=== PATIENT | female | born 1960 | race Caucasian/White ===

== ENCOUNTER 2020-02-15 03:49 | Emergency (ER) | payer BC, SELFPAY ==
--- NOTE | ~2020-02-15 | CT_ITS ---
EXAMINATION: CT abdomen pelvis wo con DATE: 02/15/2020 04:30 INDICATION: Right flank pain TECHNIQUE: Computed tomography (CT) of the abdomen and pelvis was performed without intravenous contr ast. Automated exposure control and iterative reconstruction technique were employed. The dose-length product was 849.59 mGy-cm. COMPARISON: 12/30/2014 FINDINGS: Mild discoid atelectasis in the bilateral lower lobes. No pleural effusion. Heart size is normal. Tin y pericardial effusion. Cholecystectomy clips at the gallbladder fossa. Liver, pancreas and bilateral adrenal glands are normal. Splenic calcification consistent with old granulomatous disease. 1 mm non obstructing stone at the upper pole of the left kidney. Right kidney is normal. No hydronephrosis in either kidney. No stones seen along the course of the ureters although the distalmost ureters and por tions of the bladder are obscured by dense metallic streak artifact from bilateral total hip arthropl asties. There are few scattered colonic diverticula along the descending and sigmoid colon without as sociated inflammatory stranding to suggest diverticulitis. Small bowel and appendix are normal. No fr ee intraperitoneal gas or fluid. No pathologically enlarged abdominal or pelvic lymphadenopathy. Tiny fat-containing umbilical hernia. Mild lumbar spondylosis. IMPRESSION: 1. 1 mm nonobstructing left renal stone. No ureteral stones or hydronephrosis although the distalmost ureters and portions of the bladder are obscured by streak artifact from bilateral hip arthroplastie s. 2. Mild diverticulosis. 3. Tiny pericardial effusion. Reviewed, dictated and finalized at location A. IMPRESSION: 1. 1 mm nonobstructing left renal stone. No ureteral stones or hydronephrosis a lthough the distalmost ureters and portions of the bladder are obscured by stre ak artifact from bilateral hip arthroplasties. 2. Mild diverticulosis. 3. Tiny pericardial effusion.
[2020-02-15 03:54] VITALS: BP 128/90; PULSE 73; RESP 16; TEMP 36.7; O2SAT 98
--- NOTE | 2020-02-15 04:10 | ED.GENADULT ---
HPI - General Adult General Chief complaint: Urogenital-Female Stated complaint: R flank pain Time Seen by Provider: 02/15/20 03:55 Source: RN notes reviewed History of Present Illness HPI narrative: Patient presents to emergency room from home for right flank pain. Patient states pain began this evening is progressively worsened. The pain is located in the right flank and radiates into the right groin. Described as sharp and stabbing. Denies any associated symptoms states she has had a previous history of a kidney stone feels similar before in the past. Denies any fevers or chills chest pain or shortness of breath is taken no previous pain medication at home Related Data Allergies Allergy/AdvReac Type Severity Reaction Status Date / Time methylene blue Allergy Unknown BLUE DYE Verified 02/15/20 04:16 CAUSES HIVES Sulfa (Sulfonamide Allergy Unknown Rash Verified 02/15/20 04:16 Antibiotics) Review of Systems Review of Systems: Narrative: Gen.: Denies fevers or chills ENT: Denies congestion Respiratory: Denies shortness of breath or cough CV: Denies chest pain or palpitations GI: D see HPI denies burning, urgency, frequency or hematuria Musculoskeletal: Denies back pain or muscle pain Neuro: Denies numbness, tingling, weakness or focal weakness Skin: Denies rash Except as documented, all other systems reviewed and negative [facility] Past Medical History Medical History (Updated 02/15/20 @ 06:30 by Jayant Lynn DO) Kidney stone Social History Social History (Updated 02/15/20 @ 04:11 by Jayant Lynn DO) Smoking status: Never smoker Alcohol intake: never Exam Narrative: Exam Narrative: APPEARANCE: No acute distress, nontoxic, resting in bed HEENT: Normocephalic, atraumatic, OMM RESPIRATORY: No respiratory distress, clear to auscultation bilaterally with no rhonchi wheezing or rales CARDIOVASCULAR: RRR s murmur ABDOMINAL: Soft nondistended, nontender palpation no rebound or guarding, right flank tenderness MUSCULOSKELETAl: Moves all extremities. No clubbing, cyanosis or edema. NEURO: Awake and alert. Following commands, speech normal, no focal deficits SKIN:: Warm, dry. Normal Color PSYCHIATRIC: Normal affect/mood Course Course Emergency Course: Patient states that they are feeling much better at this time. States abdominal pain has resolved. Repeat abdominal exam shows the patient's abdomen to be soft and nontender. Discussed with patient results of workup and diagnosis. Discussed need for follow-up with primary care physician, reasons to return to the emergency department in proper use of medication. Patient understands and agrees to current treatment plan Vital Signs Vital signs: Vital Signs Temperature 98.1 F 02/15/20 03:54 Pulse Rate 73 02/15/20 03:54 Respiratory Rate 16 02/15/20 03:54 Blood Pressure 128/90 02/15/20 03:54 Pulse Oximetry 98 02/15/20 03:54 Temperature 98.1 F 02/15/20 03:54 Pulse Rate 80 02/15/20 06:14 Respiratory Rate 16 02/15/20 06:14 Blood Pressure 100/68 02/15/20 06:14 Pulse Oximetry 96 02/15/20 06:14 Medical Decision Making Vital Signs Vital Signs: Vital Signs Temperature 98.1 F 02/15/20 03:54 Pulse Rate 73 02/15/20 03:54 Respiratory Rate 16 02/15/20 03:54 Blood Pressure 128/90 02/15/20 03:54 Pulse Oximetry 98 02/15/20 03:54 Temperature 98.1 F 02/15/20 03:54 Pulse Rate 80 02/15/20 06:14 Respiratory Rate 16 02/15/20 06:14 Blood Pressure 100/68 02/15/20 06:14 Pulse Oximetry 96 02/15/20 06:14 Lab Data Result diagrams: 02/15/20 04:13 02/15/20 04:13 Labs: Lab Results 02/15/20 02/15/20 02/15/20 Range/Units 04:13 04:13 04:14 WBC 9.3 (4.5-10.0) K/mm3 RBC 5.17 (4.2-5.4) M/mm3 Hgb 15.3 H (12.0-15.0) g/dL Hct 46.6 (37.0-47.0) % MCV 90.1 (80-100) fl MCH 29.6 (26-34) pg MCHC 32.8 (32-36) g/dl RDW 13.0 (11.5
[2020-02-15] MEDS: KETOROLAC 30 MG/ML VIAL (*BKC) IV PUSH (04:21)
[2020-02-15] MEDS: SODIUM CHLORIDE 0.9% IV 1,000 ML 999 ML IV CONT (04:22)
[2020-02-15 04:30] LABS: Basophils Absolute Auto 0.1 K/mm3 (0.0-0.1); Basophils Percent Auto 0.9 % (0.2-1.2); Eosinophils Absolute Auto 0.4 K/mm3 (0-0.3); Hematocrit 46.6 % (37.0-47.0); Hemoglobin 15.3 g/dL (12.0-15.0); Immature Granulocyte Absolute 0.04 K/mm3 (0.00-0.031); Immature Granulocyte Percent A 0.4 % (0-0.5); Lymphocytes Absolute Auto 1.91 K/mm3 (0.9-3.2); Lymphocytes Percent Auto 20.5 % (18.3-44.2); Mean Corpuscular HGB Conc 32.8 g/dl (32-36); Mean Corpuscular Hemoglobin 29.6 pg (26-34); Mean Corpuscular Volume 90.1 fl (80-100); Mean Platelet Volume 9.3 fl (7.4-10.4); Monocytes Absolute Auto 0.7 K/mm3 (0.1-0.6); Neutrophils Absolute Auto 6.3 K/mm3 (1.3-6.7); Neutrophils Percent Auto 67.2 % (45.5-73.1); Platelet Count Result 263 k/mm3 (150-375); Red Blood Count 5.17 M/mm3 (4.2-5.4); White Blood Count 9.3 K/mm3 (4.5-10.0)
[2020-02-15 04:37] LABS: Add Urine Microscopic? YES; Appearance Urine Cloudy (Clear); Bacteria Urine Trace /hpf; Bilirubin Urine Negative (Negative); Blood Urine Negative (Negative); Color Urine Yellow (Yellow); Glucose Urine UA 3+ mg/dL (Negative); Ketones Urine Negative (Negative); Leukocyte Esterase Ur 1+ LEU/UL (Negative); Mucus Urine Rare /lpf; Nitrate Urine Negative (Negative); Protein Urine Negative (Negative); Squamous Epithelial Cell Urine Many /hpf (Few); Urobilinogen Urine Negative mg/dL (<2.0); WBC Urine 21-30 /hpf
[2020-02-15 04:44] LABS: Alanine Aminotransferase 17 U/L (4-35); Albumin Level 4.6 g/dL (3.5-5.1); Alkaline Phosphatase 92 U/L (38-126); Anion Gap 7 mmol/L (8-16); Aspartate Amino Transferase 21 U/L (14-36); Bilirubin,Total 0.5 mg/dL (0.2-1.3); Blood Urea Nitrogen 10 mg/dL (7-17); Calcium 9.7 mg/dL (8.4-10.2); Carbon Dioxide 35 mmol/L (22-30); Chloride 103 mmol/L (98-107); Estimated CRCL calculation 85 ml/min; Estimated Glomerular Filt Rate > 60; Glucose 147 mg/dL (65-105); Potassium 3.4 mmol/L (3.4-5.0); Sodium 145 mmol/L (137-145)
[2020-02-15 04:51] LABS: Specific Grav Ur 1.031 (1.001-1.035)
[2020-02-15 06:14] VITALS: BP 100/68; PULSE 80; RESP 16; O2SAT 96
[2020-02-15] MEDS: NITROFURANTOIN MONOHYD MACROCR 100 MG CAP PO (06:38)
== END 2020-02-15 06:41 | disposition home or self-care (01) ==
PROVIDERS: Emergency Provider Emergency Medicine
DX: N39.0 Urinary tract infection, site not specified (principal); R10.9 Unspecified abdominal pain; Z87.442 Personal history of urinary calculi; K57.90 Diverticulosis of intestine, part unspecified, without perforation or abscess without bleeding
CPT/HCPCS: 36415; 74176; 80053; 81001; 85025; 87086; 96361; 96374; 99284; A9270; J1885; J7030

== ENCOUNTER → 2020-06-24 13:30 | Outpatient (CLI) | payer BC, SELFPAY ==
--- NOTE | ~2020-06-24 | XR_ITS ---
EXAMINATION: XR cervical spine min 6V EXAM DATE: 06/24/2020 14:15 INDICATION: Radiculopathy, cervical region. TECHNIQUE: Cervical spine frontal, lateral, lateral swimmers, and open-mouth odontoid projections. Additional lateral flexion and lateral extension projections obtained. Bilateral oblique projections. There are no prior studies for comparison. FINDINGS: There is moderate disc disease C5-6 and 6-7, mild at the other cervical levels. The verteb ral bodies are aligned in the AP dimension. The odontoid process is intact. The lateral masses of C1 line up with C2. Prevertebral soft tissue and pre-dens space are within normal limits. There are no acute fractures identified. Evidence of moderate bilateral C5-6 neural foraminal stenosis from uncove rtebral joint arthropathy. Probably mild to moderate bilateral neural foraminal stenosis at C6-7. Ove rall mild to moderate cervical arthropathy. Physiologic amount of motion on the flexion and extension projections. IMPRESSION: Moderate spondylosis C5-6, 6-7. Reviewed, dictated and finalized at location A. [employer]
== END ==
DX: M54.12 Radiculopathy, cervical region (principal); M99.01 Segmental and somatic dysfunction of cervical region; M99.02 Segmental and somatic dysfunction of thoracic region; M79.12 Myalgia of auxiliary muscles, head and neck; M54.14 Radiculopathy, thoracic region; M54.2 Cervicalgia; M47.812 Spondylosis without myelopathy or radiculopathy, cervical region
CPT/HCPCS: 72052

== ENCOUNTER → 2020-09-13 03:34 | Outpatient (CLI) | payer BC, SELFPAY ==
[2020-09-15 12:54] LABS: SARS-CoV-2 RNA PCR Negative
== END ==
PROVIDERS: Visit Provider Internal Medicine Gastroenterology
DX: Z01.812 Encounter for preprocedural laboratory examination (principal); Z20.822 Contact with and (suspected) exposure to COVID-19
CPT/HCPCS: C9803; U0003; U0005

== ENCOUNTER 2020-09-16 00:32 | Day surgery (SDC) | payer BC, SELFPAY ==
[2020-09-06 13:52] VITALS: BMI 32.0
[2020-09-16 09:50] VITALS: BP 155/84; PULSE 88; RESP 20; TEMP 36.2; O2SAT 95
[2020-09-16] MEDS: LACTATED RINGERS 1,000 ML 150 ML IV CONT (10:06)
[2020-09-16 10:11] LABS: Glucose Point of Care 189 mg/dl (65-105)
--- NOTE | 2020-09-16 10:35 | PM.HPGS ---
History of Present Illness History of Present Illness Consent: Risks, benefits, and alternatives have been discussed and questions answered. Patient agrees to proceed with procedure. Chief complaint: neoplasm screening Narrative: Kendra Ly is a 60 year old female referred for colon cancer screening Review of Systems Review of Systems: All systems reviewed & are unremarkable except as noted in HPI and below PMFSH Past Medical History Medical History Kidney stone Social History Social History Smoking packs per day: 0.5 Smoking cigarettes per day: 10.0 Years smoked: 16 Smoking pack-years: 8.00 Smoking status: Former smoker Tobacco type: cigarettes Alcohol intake: current Alcohol use details: rare use; 3-4 times per year Substance use: never Substance use type: does not use Living arrangements: with family Additional living arrangements comments: lives with spouse Feliciano Gender identity (if verbalized by the patient): Female Sexual Orientation (if Verbalized by the Patient): Straight or Heterosexual Spiritual care concerns: No Meds Home Medications and Allergies Home Medications Medication Instructions Recorded Confirmed Type Adult Allergy 1 tab-cap PO DAILY 09/06/20 09/06/20 History Centrum 1 tab-cap PO DAILY 09/06/20 09/06/20 History aspirin 81 mg PO DAILY 09/06/20 09/06/20 History calcium carbonate [Calcium 600] 600 mg PO DAILY 09/06/20 09/06/20 History empagliflozin-metformin [Synjardy 1 tablet PO QAM 09/06/20 09/06/20 History XR] gabapentin 1,200 mg PO 09/06/20 09/06/20 History magnesium oxide 400 mg PO DAILY 09/06/20 09/06/20 History pantoprazole 40 mg PO DAILY 09/06/20 09/06/20 History paroxetine HCl 30 mg PO QAM 09/06/20 09/06/20 History rosuvastatin 5 mg PO 09/06/20 09/06/20 History Allergies Allergy/AdvReac Type Severity Reaction Status Date / Time blue dye Allergy Unknown Hives Verified 09/16/20 09:48 methylene blue Allergy Unknown BLUE DYE Verified 09/16/20 09:48 CAUSES HIVES Sulfa (Sulfonamide Allergy Unknown Rash Verified 09/16/20 09:48 Antibiotics) Vital Signs Vital Signs - 24 hr 09/16/20 09:50 Temperature 36.2 C L Pulse Rate 88 Respiratory Rate 20 Blood Pressure 155/84 H Pulse Oximetry 95 Exam Resp: Auscultation: clear to auscultation bilaterally Cardio: Rate: regular rate Rhythm: regular rhythm GI: GI Palp: Yes Soft to palpation and No Tenderness to palpation present (GI) Assessment and Plan Assessment and plan (1) Colon cancer screening: Code(s): Z12.11 - Encounter for screening for malignant neoplasm of colon Status: Acute Assessment and Plan: Colonoscopy with possible biopsy or polypectomy or cautery or injection of substances.
--- NOTE | 2020-09-16 10:41 | WPDANESEPPF ---
Anes - Initial Pre Proc Eval Procedure: Operation Date: 09/16/20 10:30 Proposed Procedures p Screening Colonoscopy - Bean Castaneda MD Date/Time: 09/16/20 10:41 Surgeon: Bean Castaneda MD Pre Op Diagnosis: neoplasm screening Patient Data Age: 60 Gender: F Height: 5 ft 3 in Weight: 81.1 kg Last Vital Signs Temp 97.2 F L 09/16/20 09:50 Pulse 88 09/16/20 09:50 Resp 20 09/16/20 09:50 BP 155/84 H 09/16/20 09:50 Pulse Ox 95 09/16/20 09:50 Allergies Allergy/AdvReac Type Severity Reaction Status Date / Time blue dye Allergy Unknown Hives Verified 09/16/20 09:48 methylene blue Allergy Unknown BLUE DYE Verified 09/16/20 09:48 CAUSES HIVES Sulfa (Sulfonamide Allergy Unknown Rash Verified 09/16/20 09:48 Antibiotics) Home Medications Medication Instructions Recorded Confirmed Type Adult Allergy 1 tab-cap PO DAILY 09/06/20 09/06/20 History Centrum 1 tab-cap PO DAILY 09/06/20 09/06/20 History aspirin 81 mg PO DAILY 09/06/20 09/06/20 History calcium carbonate [Calcium 600] 600 mg PO DAILY 09/06/20 09/06/20 History empagliflozin-metformin [Synjardy 1 tablet PO QAM 09/06/20 09/06/20 History XR] gabapentin 1,200 mg PO HS 09/06/20 09/06/20 History magnesium oxide 400 mg PO DAILY 09/06/20 09/06/20 History pantoprazole 40 mg PO DAILY 09/06/20 09/06/20 History paroxetine HCl 30 mg PO QAM 09/06/20 09/06/20 History rosuvastatin 5 mg PO HS 09/06/20 09/06/20 History Laboratory Tests 09/16/20 10:05 POC Capillary Glucose 189 mg/dl H mg/dl (65-105) Patient hx anesthesia problems: none Family hx anesthesia problems: none PMFSH Past Medical History Medical History (Updated 09/16/20 @ 10:41 by Garth Dominguez MD) Depression Diabetes 1.5, managed as type 2 GERD (gastroesophageal reflux disease) Kidney stone ISABELLA (obstructive sleep apnea) Restless leg syndrome Social History Social History Smoking packs per day: 0.5 Smoking cigarettes per day: 10.0 Years smoked: 16 Smoking pack-years: 8.00 Smoking status: Former smoker Tobacco type: cigarettes Alcohol intake: current Alcohol use details: rare use; 3-4 times per year Substance use: never Substance use type: does not use Living arrangements: with family Additional living arrangements comments: lives with spouse Feliciano Gender identity (if verbalized by the patient): Female Sexual Orientation (if Verbalized by the Patient): Straight or Heterosexual Spiritual care concerns: No Anes - Eval Final PreProcedure Day of Procedure 09/16/20 10:41 Patient weight: overweight Heart: regular rate and rhythm Lungs: clear to auscultation Airway: Mallampati scale class II Neurological: alert and oriented Last oral intake: >/= 8 hours ASA classification: III Emergent: no Anesthetic plan: proceed Anesthesia type and monitoring: general GIVS and standard monitoring Informed Consent: The patient's anesthetic plan and its attendant risks and benefits were discussed with the patient/family/POA. Questions were solicited and answers provided to the satisfaction of the patient/family/POA.
[2020-09-16 11:12] VITALS: BP 117/69; PULSE 77; RESP 23; O2SAT 93
[2020-09-16 11:22] VITALS: BP 129/72; PULSE 82; RESP 17; O2SAT 97
[2020-09-16 11:32] VITALS: BP 129/77; PULSE 73; RESP 23; O2SAT 98
== END 2020-09-16 11:33 | disposition home or self-care (01) ==
PROVIDERS: Visit Provider Internal Medicine Gastroenterology
PROC: 0DJD8ZZ Inspection of Lower Intestinal Tract, Via Natural or Artificial Opening Endoscopic (ICD-10-PCS; CPT 45378; principal; 2020-09-16 10:30)
DX: Z12.11 Encounter for screening for malignant neoplasm of colon (principal); K57.30 Diverticulosis of large intestine without perforation or abscess without bleeding; Z87.442 Personal history of urinary calculi; Z87.891 Personal history of nicotine dependence
CPT/HCPCS: 45378; 82948; J2704; J7120

== ENCOUNTER 2021-10-17 05:53 | Emergency (ER) | payer OTHER, SELFPAY ==
[2021-10-17] VITALS (10 sets, daily range): BP systolic 110–153; BP diastolic 62–91; PULSE 92; RESP 17; TEMP 36.8; O2SAT 92–99
--- NOTE | ~2021-10-17 | CT_ITS ---
EXAMINATION: CT abdomen pelvis wo con DATE: 10/17/2021 06:34 INDICATION: Right flank pain TECHNIQUE: Computed tomography (CT) of the abdomen and pelvis was performed without intravenous contr ast. Automated exposure control and iterative reconstruction technique were employed. The dose-length product was 821.79 mGy-cm. COMPARISON: 02/15/2020 FINDINGS: Unchanged mild discoid atelectasis/scarring in the bilateral lower lobes. Heart size is normal. Ather osclerotic coronary artery calcification. Unchanged very small pericardial effusion. Diffuse hepatic steatosis. Cholecystectomy clips at the gallbladder fossa. Splenic calcifications consistent with old granulomatous disease. Pancreas and bilateral adrenal glands are normal. Unchanged 4 mm nonobstructi ng stone at the left kidney. Right kidney is normal. No hydronephrosis. No stones seen along the uret ers however portions of the distal ureters and bladder are obscured by dense metallic streak artifact from bilateral total hip arthroplasties. Unchanged pattern of phleboliths along the right gonadal ve in. There is mild colonic diverticulosis with a sigmoid predominance. There is no adjacent inflammat ory change to suggest diverticulitis. Small bowel and appendix are normal. The uterus is not identif ied and has likely been surgically resected. No free intraperitoneal gas or fluid. No pathologically enlarged abdominal or pelvic lymphadenopathy. Tiny fat-containing umbilical hernia. Mild lumbar spond ylosis. IMPRESSION: 1. Unchanged 1 mm nonobstructing left renal stone. No ureteral stones or hydronephrosis although the distalmost ureters and portions of the bladder are obscured by streak artifact from bilateral hip art hroplasties. 2. Mild diverticulosis. 3. Diffuse hepatic steatosis. 4. Unchanged tiny pericardial effusion. Reviewed, dictated and finalized at location A. IMPRESSION: 1. Unchanged 1 mm nonobstructing left renal stone. No ureteral stones or hydron ephrosis although the distalmost ureters and portions of the bladder are obscur ed by streak artifact from bilateral hip arthroplasties. 2. Mild diverticulosis. 3. Diffuse hepatic steatosis. 4. Unchanged tiny pericardial effusion.
--- NOTE | 2021-10-17 06:17 | ED.GENADULT ---
HPI - General Adult General Chief complaint: Abdominal Pain <Kilo Reed MD - Last Filed: 10/17/21 06:21> Stated complaint: right hip/side pain <Kilo Reed MD - Last Filed: 10/17/21 06:21> Time Seen by Provider: 10/17/21 06:17 <Kilo Reed MD - Last Filed: 10/17/21 06:21> History of Present Illness HPI narrative: Patient is a 61-year-old female that presents the emergency department with chief complaint of right flank pain. Patient reports that approximately 1 week ago she started having pain in the right flank area patient states spine of 8 out of 10 report is not improved by anything reports she had similar symptoms about 6 to 7 years ago whenever she had a kidney stone that she passed on her own patient states this time it actually is lasted for about a week and she is concerned that this may not be passing. Patient states that she has been urinating fairly frequently patient denies fever denies diarrhea. <Kilo Reed MD - Last Filed: 10/17/21 06:21> Related Data Home medications: Home Medications Medication Instructions Recorded Confirmed Adult Allergy 1 tab-cap PO DAILY 09/06/20 10/12/21 Centrum 1 tab-cap PO DAILY 09/06/20 10/12/21 aspirin 81 mg tablet 81 mg PO DAILY 09/06/20 10/12/21 calcium carbonate 600 mg calcium 600 mg PO DAILY 09/06/20 10/12/21 (1,500 mg) tablet (Calcium) empagliflozin 5 mg-metformin ER 1 tablet PO [facility] 09/06/20 10/12/21 1,000 mg tablet,extended release 24 hr (Synjardy XR) gabapentin 600 mg tablet 1,200 mg PO HS 09/06/20 10/12/21 magnesium oxide 400 mg PO DAILY 09/06/20 10/12/21 pantoprazole 40 mg tablet,delayed 40 mg PO DAILY 09/06/20 10/12/21 release paroxetine HCl 30 mg tablet 30 mg PO QAM 09/06/20 10/12/21 rosuvastatin 5 mg tablet 5 mg PO HS 09/06/20 10/12/21 alpha lipoic acid 600 mg capsule 600 mg PO BID 10/12/21 10/12/21 mecobalamin (vitamin B12) 5,000 mcg PO 10/12/21 10/12/21 mcg disintegrating tablet <Kilo Reed MD - Last Filed: 10/17/21 06:21> Allergies/adverse reactions: Allergies Allergy/AdvReac Type Severity Reaction Status Date / Time blue dye Allergy Unknown Hives Verified 10/17/21 06:06 methylene blue Allergy Unknown BLUE DYE Verified 10/17/21 06:06 CAUSES HIVES Sulfa (Sulfonamide Allergy Unknown Rash Verified 10/17/21 06:06 Antibiotics) <Kilo Reed MD - Last Filed: 10/17/21 06:21> Review of Systems Review of Systems: A 10 system review of systems was completed on the patient and is negative except for what is stated in the HPI. Nursing and ancillary documentation was reviewed. <Kilo Reed MD - Last Filed: 10/17/21 06:21> PMFSH Past Medical History Medical History: Medical History Depression Diabetes 1.5, managed as type 2 GERD (gastroesophageal reflux disease) Kidney stone ISABELLA (obstructive sleep apnea) Postprandial abdominal bloating Restless leg syndrome <Kilo Reed MD - Last Filed: 10/17/21 06:21> Social History Social History: Social History Smoking packs per day: 0.5 Smoking cigarettes per day: 10.0 Years smoked: 16 Smoking pack-years: 8.00 Smoking status: Former smoker Tobacco type: cigarettes Alcohol intake: current Alcohol use details: rare use; 3-4 times per year Substance use: never Substance use type: does not use Additional living arrangements comments: lives with spouse Feliciano Gender identity (if verbalized by the patient): Female Sexual Orientation (if Verbalized by the Patient): Straight or Heterosexual Spiritual care concerns: No <Kilo Reed MD - Last Filed: 10/17/21 06:21> Exam Narrative: GENERAL: Well-appearing, well-nourished, and in no acute distress. HEAD: Normocephalic, atraumatic. EYES: PERRL
--- NOTE | 2021-10-17 06:23 | PC.NURSE ---
Patient taken to CT via stretcher.
[2021-10-17 06:31] LABS: Basophils Absolute Auto 0.1 K/mm3 (0.0-0.1); Eosinophils Absolute Auto 1.1 K/mm3 (0-0.3); Eosinophils Percent Auto 11.3 % (0-4.4); Hemoglobin 15.1 g/dL (12.0-15.0); Immature Granulocyte Absolute 0.04 K/mm3 (0.00-0.031); Immature Granulocyte Percent A 0.4 % (0-0.5); Lymphocytes Absolute Auto 1.98 K/mm3 (0.9-3.2); Lymphocytes Percent Auto 21.2 % (18.3-44.2); Mean Corpuscular HGB Conc 32.8 g/dl (32-36); Mean Corpuscular Volume 91.3 fl (80-100); Mean Platelet Volume 9.1 fl (7.4-10.4); Monocytes Absolute Auto 0.6 K/mm3 (0.1-0.6); Monocytes Percent Auto 6.5 % (2.6-8.5); Neutrophils Absolute Auto 5.6 K/mm3 (1.3-6.7); Neutrophils Percent Auto 59.6 % (45.5-73.1); Platelet Count Result 248 k/mm3 (150-375); Red Blood Count 5.04 M/mm3 (4.2-5.4); Red Cell Distribution Width 13.2 % (11.5-14.5); White Blood Count 9.4 K/mm3 (4.5-10.0)
[2021-10-17] MEDS: SODIUM CHLORIDE 0.9% IV 1,000 ML 999 ML IV CONT (06:31)
[2021-10-17] MEDS: ONDANSETRON INJ 4 MG/2 ML VIAL IV PUSH (06:31)
[2021-10-17 06:42] LABS: Alanine Aminotransferase 23 U/L (6-35); Albumin Level 4.4 g/dL (3.5-5.1); Alkaline Phosphatase 109 U/L (38-126); Anion Gap 8 mmol/L (8-16); Aspartate Amino Transferase 26 U/L (14-36); Bilirubin,Total 0.4 mg/dL (0.2-1.3); Blood Urea Nitrogen 15 mg/dL (7-17); Calcium 9.4 mg/dL (8.4-10.2); Carbon Dioxide 28 mmol/L (22-30); Chloride 105 mmol/L (98-107); Estimated CRCL calculation 119 ml/min; Estimated Glomerular Filt Rate > 60; Glucose 233 mg/dL (65-110); Lactic Acid Reflex 2.6 mmol/L (0.7-2.0); Lipase 248 U/L (23-300); Magnesium 1.9 mg/dL (1.6-2.3); Sodium 141 mmol/L (137-145)
[2021-10-17 06:44] LABS: Add Urine Microscopic? YES; Appearance Urine Cloudy (Clear); Bilirubin Urine Negative (Negative); Blood Urine Trace-lysed (Negative); Color Urine Yellow (Yellow); Glucose Urine UA 3+ mg/dL (Negative); Ketones Urine Trace mg/dL (Negative); Leukocyte Esterase Ur 1+ LEU/UL (Negative); Nitrate Urine Negative (Negative); Protein Urine Negative (Negative); Urobilinogen Urine 0.2 mg/dL (<2.0); pH Urine 5.5 (5.0-9.0)
[2021-10-17 06:48] LABS: Budding Yeast Urine Present /hpf; Mucus Urine Rare /lpf; RBC Urine 51-75 /hpf (0-2); Squamous Epithelial Cell Urine Few /hpf (Few); WBC Urine >75 /hpf
--- NOTE | 2021-10-17 07:15 | PC.NURSE ---
Patient report received from LETICIA berry. All questions answered and care of patient assumed. Patient resting in stretcher with spouse at bedside and call-light within reach. Patient continue to c/o mild but tolerable pain. Continues to decline pain medication. Awaiting disposition.
[2021-10-17 09:27] LABS: Reflex Lactic Acid Yes or No Add Lactic
== END 2021-10-17 08:24 | disposition home or self-care (01) ==
PROVIDERS: Emergency Medicine; Emergency Provider Emergency Medicine
DX: N39.0 Urinary tract infection, site not specified (principal); E13.9 Other specified diabetes mellitus without complications; K21.9 Gastro-esophageal reflux disease without esophagitis; G47.33 Obstructive sleep apnea (adult) (pediatric); G25.81 Restless legs syndrome; F32.A Depression, unspecified; Z87.442 Personal history of urinary calculi; Z79.82 Long term (current) use of aspirin; Z79.84 Long term (current) use of oral hypoglycemic drugs; Z87.891 Personal history of nicotine dependence; N20.0 Calculus of kidney; K76.0 Fatty (change of) liver, not elsewhere classified; K57.90 Diverticulosis of intestine, part unspecified, without perforation or abscess without bleeding
CPT/HCPCS: 36415; 74176; 80053; 81001; 83605; 83690; 83735; 85025; 87086; 96361; 96374; 99284; J2405; J7030

== ENCOUNTER 2021-10-20 15:00 | Emergency (ER) | payer OTHER, SELFPAY ==
[2021-10-20 15:12] VITALS: BP 130/84; PULSE 93; RESP 14; TEMP 36.9; O2SAT 95
--- NOTE | 2021-10-20 15:58 | ED.FEMALEGU ---
HPI - Female Genitourinary General Chief complaint: Urogenital-Female Stated complaint: uti pain Time Seen by Provider: 10/20/21 15:21 Source: patient Mode of arrival: ambulatory History of Present Illness HPI Narrative: This is a 61-year-old female, who returns emergency department complaining of right-sided flank pain. She states she was here 3 days ago, and diagnosed with a UTI associated with a 1 mm stone. At the time of evaluation she did not have pain and politely declined pain medications. Today, she has noted several episodes of sharp, 8/10, right-sided flank pain with intermittent radiation to the left, aggravated by ambulation or prolonged standing; no known alleviating factors at this time.She has not tried any medications at home for this. She denies vomiting and has tolerated her antibiotics as previously prescribed. Related Data Home Medications Medication Instructions Recorded Confirmed Adult Allergy 1 tab-cap PO DAILY 09/06/20 10/17/21 Centrum 1 tab-cap PO DAILY 09/06/20 10/17/21 aspirin 81 mg tablet 81 mg PO DAILY 09/06/20 10/17/21 calcium carbonate 600 mg calcium 600 mg PO DAILY 09/06/20 10/17/21 (1,500 mg) tablet (Calcium) empagliflozin 5 mg-metformin ER 1 tablet PO QAM 09/06/20 10/17/21 1,000 mg tablet,extended release 24 hr (Synjardy XR) gabapentin 600 mg tablet 1,200 mg PO HS 09/06/20 10/17/21 magnesium oxide 400 mg PO DAILY 09/06/20 10/17/21 pantoprazole 40 mg tablet,delayed 40 mg PO DAILY 09/06/20 10/17/21 release paroxetine HCl 30 mg tablet (Paxil) 30 mg PO QAM 09/06/20 10/17/21 rosuvastatin 5 mg tablet 5 mg PO 09/06/20 10/17/21 alpha lipoic acid 600 mg capsule 600 mg PO BID 10/12/21 10/17/21 mecobalamin (vitamin B12) 5,000 1 mcg PO DAILY 10/12/21 10/17/21 mcg disintegrating tablet Allergies Allergy/AdvReac Type Severity Reaction Status Date / Time blue dye Allergy Unknown Hives Verified 10/17/21 12:58 methylene blue Allergy Unknown BLUE DYE Verified 10/17/21 12:58 CAUSES HIVES Sulfa (Sulfonamide Allergy Unknown Rash Verified 10/17/21 12:58 Antibiotics) Review of Systems Review of Systems: CONSTITUTIONAL: Denies fever, chills, or sweats. EYES: Denies visual changes, redness, or discharge. ENT: Denies rhinorrhea, congestion, sore throat, or otalgia. CARDIOVASCULAR: Denies chest pain, palpitations, or edema. RESPIRATORY: Denies cough or dyspnea. GASTROINTESTINAL: Sharp abdominal pain as described above, denies nausea, vomiting, or diarrhea. GENITOURINARY: Denies dysuria or hematuria. SKIN: Denies rash or itching. MUSCULOSKELETAL: Back pain as described above, denies joint pain, or myalgia. NEUROLOGIC: Denies headache, numbness, dizziness, or weakness. PSYCHIATRIC: Denies anxiety or depression. PMFSH Past Medical History Medical History Body mass index [BMI] 32.0-32.9, adult (12/30/18) Depression Diabetes 1.5, managed as type 2 DM w/o complication type II GERD (gastroesophageal reflux disease) Hyperlipidemia Kidney stone Nail deformity Neoplasm ISABELLA (obstructive sleep apnea) Postprandial abdominal bloating Restless leg syndrome Social History Social History Smoking packs per day: 0.5 Smoking cigarettes per day: 10.0 Years smoked: 16 Smoking pack-years: 8.00 Smoking status: Former smoker Tobacco type: cigarettes Alcohol intake: current Alcohol use details: rare use; 3-4 times per year Substance use: never Substance use type: does not use Additional living arrangements comments: lives with spouse Feliciano Gender identity (if verbalized by the patient): Female Sexual Orientation (if Verbalized by the Patient): Straight or Heterosexual Spiritual care concerns: No Exam Narrative: GENERAL: Well-appearing, well-nourished, and in no acute distress. HEAD: Normocephalic, atraumatic. EYES: PERRLA and EOMI. ENT: Nares clear, n
[2021-10-20 16:07] VITALS: BP 120/76; PULSE 78; RESP 18; O2SAT 98
[2021-10-20] MEDS: KETOROLAC 30 MG/ML VIAL (*BKC) 15 MG IM (16:11)
== END 2021-10-20 18:27 | disposition home or self-care (01) ==
PROVIDERS: Emergency Provider Preventive Medicine Aerospace Medicine
DX: N20.0 Calculus of kidney (principal); E78.5 Hyperlipidemia, unspecified; E13.9 Other specified diabetes mellitus without complications; K21.9 Gastro-esophageal reflux disease without esophagitis; G47.33 Obstructive sleep apnea (adult) (pediatric); G25.81 Restless legs syndrome; Z79.82 Long term (current) use of aspirin; Z87.442 Personal history of urinary calculi
CPT/HCPCS: 96372; 99283; J1885

== ENCOUNTER 2021-11-02 01:20 | Day surgery (SDC) | payer OTHER, SELFPAY ==
[2021-10-17 13:01] VITALS: BMI 31.9
--- NOTE | 2021-11-01 11:17 | PM.HPGS ---
History of Present Illness History of Present Illness Consent: Risks, benefits, and alternatives have been discussed and questions answered. Patient agrees to proceed with procedure. Chief complaint: bloating Narrative: Kendra Ly is a 61 year old female With complaints For the past 15-20 years, she has taken pantoprazole 40 mg daily for reflux but has never had an EGD.? she does report occasional breakthrough heartburn that she treats with [facility]. She denies any dysphagia or odynophagia. she complains off and on for the past couple years that has progressively gotten worse over this past year.? States bloating is worse after eating is better in the morning.? she cannot identify any particular foods that make her bloating worse.? she denies any vomiting.? 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 GERD (gastroesophageal reflux disease) Hyperlipidemia Kidney stone Nail deformity Neoplasm ISABELLA (obstructive sleep apnea) Postprandial abdominal bloating Restless leg syndrome Social History Social History Smoking packs per day: 0.5 Smoking cigarettes per day: 10.0 Years smoked: 16 Smoking pack-years: 8.00 Smoking status: Former smoker Tobacco type: cigarettes Alcohol intake: current Alcohol use details: rare use; 3-4 times per year Substance use: never Substance use type: does not use Additional living arrangements comments: lives with spouse Feliciano Gender identity (if verbalized by the patient): Female Sexual Orientation (if Verbalized by the Patient): Straight or Heterosexual Spiritual care concerns: No Meds Home Medications and Allergies Home Medications Medication Instructions Recorded Confirmed Type Adult Allergy 1 tab-cap PO DAILY 09/06/20 10/17/21 History Centrum 1 tab-cap PO DAILY 09/06/20 10/17/21 History aspirin 81 mg tablet 81 mg PO DAILY 09/06/20 10/17/21 History calcium carbonate 600 mg calcium 600 mg PO DAILY 09/06/20 10/17/21 History (1,500 mg) tablet (Calcium) empagliflozin 5 mg-metformin ER 1 tablet PO QAM 09/06/20 10/17/21 History 1,000 mg tablet,extended release 24 hr (Synjardy XR) gabapentin 600 mg tablet 1,200 mg PO HS 09/06/20 10/17/21 History magnesium oxide 400 mg PO DAILY 09/06/20 10/17/21 History pantoprazole 40 mg tablet,delayed 40 mg PO DAILY 09/06/20 10/17/21 History release paroxetine HCl 30 mg tablet (Paxil) 30 mg PO QAM 09/06/20 10/17/21 History rosuvastatin 5 mg tablet 5 mg PO HS 09/06/20 10/17/21 History alpha lipoic acid 600 mg capsule 600 mg PO BID 10/12/21 10/17/21 History mecobalamin (vitamin B12) 5,000 1 mcg PO DAILY 10/12/21 10/17/21 History mcg disintegrating tablet cephalexin 500 mg tablet 500 mg PO Q12H #14 tabs 10/17/21 10/17/21 Rx acetaminophen 500 mg tablet 500 mg PO .every 8 hours PRN pain 10/20/21 11/02/21 Rx (Acetaminophen Extra Strength) #60 tabs naproxen 500 mg tablet 500 mg PO BID #30 tabs 10/20/21 11/02/21 Rx tamsulosin 0.4 mg capsule 0.4 mg PO DAILY #14 caps 10/20/21 11/02/21 Rx Allergies Allergy/AdvReac Type Severity Reaction Status Date / Time blue dye Allergy Unknown Hives Verified 11/02/21 07:05 methylene blue Allergy Unknown BLUE DYE Verified 11/02/21 07:05 CAUSES HIVES Sulfa (Sulfonamide Allergy Unknown Rash Verified 11/02/21 07:05 Antibiotics) Exam Const: General: alert Orientation/consciousness: patient oriented x3 Resp: Auscultation: clear to auscultation bilaterally Cardio: Rhythm: regular rhythm GI: GI Palp: Yes Soft to palpation and No Tenderness to palpation present (GI) Neuro: General: patient oriented x3 Assessment a
--- NOTE | 2021-11-01 15:52 | WPDANESEPPF ---
Anes - Initial Pre Proc Eval Procedure: Operation Date: 11/02/21 08:30 Proposed Procedures p Esophagogastroduodenoscopy - Bean Castaneda MD Date/Time: 11/01/21 15:52 Surgeon: Bean Castaneda MD Pre Op Diagnosis: bloating Patient Data Age: 61 Gender: F Height: 1.6 m Weight: 81.8 kg Allergies Allergy/AdvReac Type Severity Reaction Status Date / Time blue dye Allergy Unknown Hives Verified 11/02/21 07:05 methylene blue Allergy Unknown BLUE DYE Verified 11/02/21 07:05 CAUSES HIVES Sulfa (Sulfonamide Allergy Unknown Rash Verified 11/02/21 07:05 Antibiotics) Home Medications Medication Instructions Recorded Confirmed Type Adult Allergy 1 tab-cap PO DAILY 09/06/20 10/17/21 History Centrum 1 tab-cap PO DAILY 09/06/20 10/17/21 History aspirin 81 mg tablet 81 mg PO DAILY 09/06/20 10/17/21 History calcium carbonate 600 mg calcium 600 mg PO DAILY 09/06/20 10/17/21 History (1,500 mg) tablet (Calcium) empagliflozin 5 mg-metformin ER 1 tablet PO QAM 09/06/20 10/17/21 History 1,000 mg tablet,extended release 24 hr (Synjardy XR) gabapentin 600 mg tablet 1,200 mg PO HS 09/06/20 10/17/21 History magnesium oxide 400 mg PO DAILY 09/06/20 10/17/21 History pantoprazole 40 mg tablet,delayed 40 mg PO DAILY 09/06/20 10/17/21 History release paroxetine HCl 30 mg tablet (Paxil) 30 mg PO QAM 09/06/20 10/17/21 History rosuvastatin 5 mg tablet 5 mg PO HS 09/06/20 10/17/21 History alpha lipoic acid 600 mg capsule 600 mg PO BID 10/12/21 10/17/21 History mecobalamin (vitamin B12) 5,000 1 mcg PO DAILY 10/12/21 10/17/21 History mcg disintegrating tablet cephalexin 500 mg tablet 500 mg PO Q12H #14 tabs 10/17/21 10/17/21 Rx acetaminophen 500 mg tablet 500 mg PO .every 8 hours PRN pain 10/20/21 11/02/21 Rx (Acetaminophen Extra Strength) #60 tabs naproxen 500 mg tablet 500 mg PO BID #30 tabs 10/20/21 11/02/21 Rx tamsulosin 0.4 mg capsule 0.4 mg PO DAILY #14 caps 10/20/21 11/02/21 Rx Patient hx anesthesia problems: none Family hx anesthesia problems: none Results Review: All pre-operative results and documents have been reviewed as part of the pre-operative evaluation. 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 type II GERD (gastroesophageal reflux disease) Hyperlipidemia Kidney stone Nail deformity Neoplasm ISABELLA (obstructive sleep apnea) Postprandial abdominal bloating Restless leg syndrome Social History Social History Smoking packs per day: 0.5 Smoking cigarettes per day: 10.0 Years smoked: 16 Smoking pack-years: 8.00 Smoking status: Former smoker Tobacco type: cigarettes Alcohol intake: current Alcohol use details: rare use; 3-4 times per year Substance use: never Substance use type: does not use Additional living arrangements comments: lives with spouse Feliciano Gender identity (if verbalized by the patient): Female Sexual Orientation (if Verbalized by the Patient): Straight or Heterosexual Spiritual care concerns: No Anes - Eval Final PreProcedure Day of Procedure 11/01/21 15:52 Patient weight: overweight Heart: regular rate and rhythm Lungs: clear to auscultation Airway: Mallampati scale class II Neurological: alert and oriented Last oral intake: >/= 8 hours ASA classification: III Emergent: no Anesthetic plan: proceed Anesthesia type and monitoring: general GIVS and standard monitoring Results Review: All pre-operative results and documents have been reviewed as part of the pre-operative evaluation. Informed Consent: The patient's anesthetic plan and its attendant risks and benefits were discussed with the patient/family/POA. Questions were solicited and answers provided to the satisfaction of the patient/family/POA.
[2021-11-02 07:06] VITALS: BP 146/87; PULSE 85; RESP 18; TEMP 36.2; O2SAT 97; BMI 31.8
[2021-11-02] MEDS: LACTATED RINGERS 1,000 ML 150 ML IV CONT (07:24)
[2021-11-02 07:27] LABS: Glucose Point of Care 187 mg/dl (65-105)
[2021-11-02 08:21] VITALS: BP 89/41; PULSE 84; RESP 17; O2SAT 97
[2021-11-02 08:31] VITALS: BP 123/66; PULSE 83; RESP 19; O2SAT 99
[2021-11-02 08:41] VITALS: BP 125/70; PULSE 84; RESP 24; O2SAT 99
== END 2021-11-02 08:56 | disposition home or self-care (01) ==
PROVIDERS: Visit Provider Internal Medicine Gastroenterology
PROC: 0DJ08ZZ Inspection of Upper Intestinal Tract, Via Natural or Artificial Opening Endoscopic (ICD-10-PCS; CPT 43235; principal; 2021-11-02 08:30)
DX: K21.9 Gastro-esophageal reflux disease without esophagitis (principal); K29.70 Gastritis, unspecified, without bleeding; E13.9 Other specified diabetes mellitus without complications; E78.5 Hyperlipidemia, unspecified; G47.33 Obstructive sleep apnea (adult) (pediatric); G25.81 Restless legs syndrome; F32.A Depression, unspecified; Z79.84 Long term (current) use of oral hypoglycemic drugs; Z87.891 Personal history of nicotine dependence
CPT/HCPCS: 43239; 82948; 88305; J2001; J2704; J7120

== ENCOUNTER 2022-01-10 11:59 | Outpatient (CLI) | payer OTHER, SELFPAY ==
--- NOTE | ~2022-01-10 | XR_ITS ---
XR abdomen/kub 1V 01/10/2022 12:23 Indication: Gastroesophageal reflux. Procedure: KUB Comparison: 12/24/2012 Findings: Bowel gas pattern is nonobstructive. There are cholecystectomy clips. There is bilateral to alecia hip arthroplasties. No acute osseous abnormality. Impression: 1: No acute abdominal abnormality. Reviewed, dictated and finalized at location A. Impression: 1: No acute abdominal abnormality.
== END 2022-01-10 12:00 | disposition home or self-care (01) ==
PROVIDERS: Visit Provider Nurse Practitioner Family
DX: K21.9 Gastro-esophageal reflux disease without esophagitis (principal)
CPT/HCPCS: 74018

== ENCOUNTER 2022-04-04 14:00 | Emergency (ER) | payer OTHER, SELFPAY ==
--- NOTE | ~2022-04-04 | CT_ITS ---
EXAMINATION: CT abdomen pelvis wo con DATE: 04/04/2022 16:07 INDICATION: hematuria. hsx of stone TECHNIQUE: Computed tomography (CT) of the abdomen and pelvis was performed intravenous contrast. Automated exposure control and iterative reconstruction technique were employe d. The dose-length product was 359.65 mGy-cm. COMPARISON: None. FINDINGS: Lower thorax: Lower lung scarring. Unchanged minimal pericardial thickening/fluid. Liver: Normal. Biliary/Gallbladder: Gallbladder is absent. No bile duct dilation. Pancreas: No mass or duct dilation. Spleen: Normal. Adrenals:No mass. Kidneys: No mass, stone, or hydronephrosis. Density at the tips of the renal pyramids. GI tract: No small or large bowel dilation. Normal appendix. Diverticulosis without diverticulitis. Mesentery/Peritoneum: No ascites, mass, or free air. Retroperitoneum: No mass. Atherosclerotic abdominal aortic and/or arterial calcifications. Pelvis: Considerable artifact obscures the majority of the pelvic organs. Soft Tissues: Small uncomplicated fat-containing umbilical hernia Bones: No acute osseous finding. Bilateral incompletely visualized but uncomplicated appearing hip a rthroplasties IMPRESSION: No acute abdominopelvic process detected. The distal ureters and UVJs are obscured by hardware relate d artifact, however there is no evidence of obstructive uropathy proximally. Chronic and incidental f indings detailed above. Reviewed, dictated and finalized at location K. WORKER IMPRESSION: No acute abdominopelvic process detected. The distal ureters and UVJs are obscu red by hardware related artifact, however there is no evidence of obstructive u ropathy proximally. Chronic and incidental findings detailed above.
[2022-04-04 14:15] VITALS: BP 147/76; PULSE 99; RESP 18; TEMP 36.7; O2SAT 99
[2022-04-04 15:20] LABS: Appearance Urine Slightly Cloudy (Clear); Bilirubin Urine Negative (Negative); Blood Urine 2+ (Negative); Color Urine Orange (Yellow); Glucose Urine UA 3+ mg/dL (Negative); Ketones Urine Negative (Negative); Nitrate Urine Positive (Negative); Protein Urine 2+ mg/dL (Negative)
[2022-04-04 15:21] LABS: Add Urine Microscopic? YES; Leukocyte Esterase Ur 1+ LEU/UL (Negative)
[2022-04-04 15:27] LABS: Bacteria Urine Trace /hpf; Budding Yeast Urine Present /hpf; RBC Urine 51-75 /hpf (0-2); Squamous Epithelial Cell Urine Many /hpf (Few); WBC Clumps Urine Present /HPF; WBC Urine >75 /hpf
--- NOTE | 2022-04-04 16:03 | ED.GENADULT ---
HPI - General Adult General Chief complaint: Urogenital-Female Stated complaint: urinary incontinence with vaginal pain since Liane Time Seen by Provider: 04/04/22 14:45 History of Present Illness HPI narrative: 61-year-old female with recurrent UTIs presented to the emergency department for evaluation hematuria bladder spasms and vaginal wall spasms. Patient states this has been ongoing for multiple months. Patient does have follow-up with urology. Patient has also had follow-up with [facility]. Patient states she completed her last course of antibiotics a few months ago. Patient states she began having worsening symptoms over the last few days. Patient is currently being worked up by urology and [facility] for possible vaginal vesicular fistula Related Data Home Medications Medication Instructions Recorded Confirmed Adult Allergy 1 tab-cap PO DAILY 09/06/20 03/27/22 Centrum 1 tab-cap PO DAILY 09/06/20 03/27/22 aspirin 81 mg tablet 81 mg PO DAILY 09/06/20 03/27/22 empagliflozin 5 mg-metformin ER 1 tablet PO QAM 09/06/20 03/27/22 1,000 mg tablet,extended release 24 hr (Synjardy XR) gabapentin 600 mg tablet 1,200 mg PO HS 09/06/20 03/27/22 pantoprazole 40 mg tablet,delayed 40 mg PO DAILY 09/06/20 03/27/22 release paroxetine HCl 30 mg tablet (Paxil) 30 mg PO QAM 09/06/20 03/27/22 rosuvastatin 5 mg tablet 5 mg PO HS 09/06/20 03/27/22 alpha lipoic acid 600 mg capsule 600 mg PO BID 10/12/21 03/27/22 Allergies Allergy/AdvReac Type Severity Reaction Status Date / Time blue dye Allergy Unknown Hives Verified 03/27/22 10:14 methylene blue Allergy Unknown BLUE DYE Verified 03/27/22 10:14 CAUSES HIVES Sulfa (Sulfonamide Allergy Unknown Rash Verified 03/27/22 10:14 Antibiotics) Review of Systems Review of Systems: CONSTITUTIONAL: Denies fever, chills, or sweats. EYES: Denies visual changes, redness, or discharge. ENT: Denies rhinorrhea, congestion, sore throat, or otalgia. CARDIOVASCULAR: Denies chest pain, palpitations, or edema. RESPIRATORY: Denies cough or dyspnea. GASTROINTESTINAL: Denies abdominal pain, nausea, vomiting, or diarrhea. GENITOURINARY: Hematuria, vaginal and bladder spasms SKIN: Denies rash or itching. MUSCULOSKELETAL: Denies back pain, joint pain, or myalgia. NEUROLOGIC: Denies headache, numbness, or weakness. 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 II GERD (gastroesophageal reflux disease) Hyperlipidemia IBS (irritable bowel syndrome) Kidney stone Nail deformity Neoplasm ISABELLA (obstructive sleep apnea) Postprandial abdominal bloating Restless leg syndrome Surgical History Surgical History History of ankle surgery (~2011) left ankle tendonitis surgery History of bladder suspension procedure (~09/22/03) TVT History of cholecystectomy (~07/22/08) History of hip replacement (~10/13/18) left hip replacement History of sinus surgery (~02/21/19) History of tonsillectomy (~07/22/80) History of total right hip replacement (~09/09/09) History of total vaginal hysterectomy (TVH) (~09/21/01) menometrorrhagia Family History Family History Father Hypertension Heart disease Grandparent Hypertension maternal grandmother Diabetes mellitus maternal grandmother Cerebrovascular accident maternal grandmother Social History Social History Smoking packs per day: 0.5 Smoking cigarettes per day: 10.0 Years smoked: 16 Smoking pack-years: 8.00 Smoking status: Former smoker Tobacco type: cigarettes Alcohol intake: former Alcohol use details: rare use; 3-4 times per year Substance use: never Subst
[2022-04-04] MEDS: levoFLOXacin 750 MG TABLET PO (16:32)
[2022-04-04] MEDS: HYDROcodone/acetaminophen (*CRX) 5-325 MG TABLET 1 TAB PO (16:37)
== END 2022-04-04 17:30 | disposition home or self-care (01) ==
PROVIDERS: Emergency Medicine; Emergency Provider Emergency Medicine
DX: N39.0 Urinary tract infection, site not specified (principal); F41.9 Anxiety disorder, unspecified; F32.9 Major depressive disorder, single episode, unspecified; E11.9 Type 2 diabetes mellitus without complications; K21.9 Gastro-esophageal reflux disease without esophagitis; E78.5 Hyperlipidemia, unspecified; G47.30 Sleep apnea, unspecified
CPT/HCPCS: 74176; 81001; 87086; 99284; A9270

== ENCOUNTER 2022-04-05 07:36 | Outpatient (CLI) | payer OTHER, SELFPAY ==
--- NOTE | ~2022-04-05 | NM_ITS ---
EXAM: NM gastric emptying study DATE: 04/05/2022 12:19 INDICATION: Postprandial bloating and gas. TECHNIQUE: A gastric emptying study was performed using the methodology of Humaira COLE, et al. J Nucl Med 2007; 48:568-572. The patient was given a meal consisting of 2 scrambled eggs labeled with 1.01 mCi Tc-99m sulfur colloid, 2 slices of toast, two packages of jam, and approximately 120 mL of water. Simultaneous anterior and posterior 1-min images of the abdomen were obtained with the patient supin e at multiple time points over a total period of 4 hours. The geometric mean of anterior and posterio r views was determined, and the percentage retention was calculated for each time point. COMPARISON: CT abdomen and pelvis 04/04/2022 FINDINGS: Gastric retention of the radiotracer-labeled meal was 76%, 43%, and 20% at the 1-hour, 2-h our, and 4-hour time points, respectively. With this technique, apparent rapid gastric emptying is cruz ggested by <30% gastric retention at 1 hour. Delayed gastric emptying is defined by gastric retention of >90% at 1 hour, >60% retention at 2 hours, or >10% retention at 4 hours. IMPRESSION: 1. Delayed gastric emptying. Reviewed, dictated and finalized at location A. [employer]IST
== END 2022-04-05 07:37 | disposition home or self-care (01) ==
PROVIDERS: Visit Provider Nurse Practitioner Family
DX: R14.0 Abdominal distension (gaseous) (principal); K30 Functional dyspepsia
CPT/HCPCS: 78264; A9541

== ENCOUNTER 2022-05-02 09:08 | Outpatient (CLI) | payer OTHER, SELFPAY ==
--- NOTE | ~2022-05-02 | XR_ITS ---
EXAMINATION: XR abdomen/kub 1V INDICATION: Microscopic hematuria TECHNIQUE: Supine views of the abdomen were obtained on 2 radiographs. COMPARISON: 01/10/2022 FINDINGS: No urolithiasis is identified. The bowel gas pattern is normal. Cholecystectomy clips are n oted. The visualized lung bases are clear. There are changes of bilateral hip arthroplasty. IMPRESSION: 1. No urolithiasis identified. Reviewed, dictated and finalized at location L. LINE COOK
== END 2022-05-02 09:09 | disposition home or self-care (01) ==
LOC: ANHIMG 09:16
PROVIDERS: Visit Provider Nurse Practitioner Family
DX: R31.29 Other microscopic hematuria (principal)
CPT/HCPCS: 74018

== ENCOUNTER 2022-12-27 09:47 | Outpatient (CLI) | payer OTHER, SELFPAY ==
[2022-12-27 10:30] LABS: Anion Gap 8 mmol/L (8-16); Blood Urea Nitrogen 11 mg/dL (7-17); Calcium 9.6 mg/dL (8.4-10.2); Carbon Dioxide 32 mmol/L (22-30); Chloride 102 mmol/L (98-107); Estimated Glomerular Filt Rate > 60; Glucose 144 mg/dL (65-110); Potassium 4.4 mmol/L (3.4-5.0); Sodium 142 mmol/L (137-145)
== END 2022-12-27 09:48 | disposition home or self-care (01) ==
PROVIDERS: Anesthesiology; Visit Provider Urology
DX: Z01.818 Encounter for other preprocedural examination (principal); E11.9 Type 2 diabetes mellitus without complications
CPT/HCPCS: 36415; 80048

== ENCOUNTER 2022-12-29 00:57 | Day surgery (SDC) | payer OTHER, SELFPAY ==
[2022-12-26 14:58] VITALS: BMI 29.2
--- NOTE | 2022-12-26 15:14 | PC.NURSE ---
Report to the Outpatient Waiting Room, entrance under the green pavilion located off [facility], at time 07:00am on date 12-29-22. Planned Procedure Time: 09:00am. Time changes happen often and if your time is changed the preop area will call you the afternoon before. - You and your visitor will be asked to self-screen and do not enter if you have any COVID symptoms. - A mask is optional within the hospital at this time. Patients may have clear liquids (water, carbonated beverages, clear teas, apple juice) until 3 hours prior to surgery (06:00am) with a maximum of 20 ounces. - No food from midnight until time of surgery Take the following medications with a SIP of water the morning of surgery: BUPRPION, PAXIL DO NOT STOP ANY OF YOUR OTHER PRESCRIPTION MEDICATIONS PRIOR TO SURGERY ?EXCEPT THE FOLLOWING Medications to discontinue per physician: VITMAINS AND ASPIRIN STOPPED 8-28 PER [facility] AND PATIENT Please no make-up, nail yi, hairspray, perfume, deodorant, or body powder the day of surgery. No jewelry (including any body piercings) or valuables the day of surgery, leave them at home. Please take a shower or bath the night before, or the morning of, surgery with an antibacterial soap. Wear comfortable, loose fitting clothing. - Jewelry must be removed prior to entering the operating room. Rings and piercings that are not removed may be cut off. - The hospital will not accept responsibility for valuables. - Please leave all valuables, including medications, at home the day of surgery. If you are going home after surgery, a licensed team cdl driver must drive you home. - NO public transportation without another adult if you receive anesthesia. - We recommend that an adult stay with you for 24 hours following discharge. - We also recommend that you do not drive, make important decision, drink alcoholic beverages, or take any drugs that were not prescribed by your health care provider for at least 24 hours after your discharge time. Follow any additional instructions given to you from your surgeon. If you or anyone in your household have experienced Covid symptoms in the past week, please notify your surgeon or the nurse liaison at the phone number below for possible testing. Telephone instructions given to PATIENT and asked if any additional questions and then verbalized understanding. Patient advised to call surgeon office or pre surgery nurse liaison [phone] if any additional questions.
--- NOTE | 2022-12-27 21:56 | PM.IMHP ---
H&P: HPI History of Present Illness Date/Time: 12/27/22 21:56 Chief Complaint: urge incontinence Narrative: she has refractory urge incontinence. She is failed at least 2 medications well as behavioral techniques and Kegel exercises. She underwent a trial of sacral neuromodulation. She had greater than 50% improvement. 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 type II Gastroparesis GERD (gastroesophageal reflux disease) Hyperlipidemia IBS (irritable bowel syndrome) Kidney stone Nail deformity Neoplasm ISABELLA (obstructive sleep apnea) Postprandial abdominal bloating Restless leg syndrome Surgical History Surgical History History of ankle surgery (~2011) left ankle tendonitis surgery History of bladder suspension procedure (~09/22/03) TVT History of cholecystectomy (~07/22/08) History of hip replacement (~10/13/18) left hip replacement History of sinus surgery (~02/21/19) History of tonsillectomy (~07/22/80) History of total right hip replacement (~09/09/09) History of total vaginal hysterectomy (TVH) (~09/21/01) menometrorrhagia Family History Family History Father Hypertension Heart disease Grandparent Hypertension maternal grandmother Diabetes mellitus maternal grandmother Cerebrovascular accident maternal grandmother Social History Social History Smoking packs per day: 0.5 Smoking cigarettes per day: 10.0 Years smoked: 16 Smoking pack-years: 8.00 Smoking status: Former smoker Tobacco type: cigarettes Second hand tobacco smoke exposure: No Smoking end date: 06/07/91 Alcohol intake: never Alcohol use details: rare use; 3-4 times per year Substance use: never Substance use type: does not use Living arrangements: with family Additional living arrangements comments: lives with spouse Feliciano Occupation/Education: retired Gender identity (if verbalized by the patient): Female Sexual Orientation (if Verbalized by the Patient): Straight or Heterosexual Spiritual care concerns: No Meds Home Medications and Allergies Home Medications Medication Instructions Recorded Confirmed Type aspirin 81 mg tablet 81 mg PO DAILY 09/06/20 12/26/22 History empagliflozin 5 mg-metformin ER 1 tablet PO [facility] 09/06/20 12/26/22 History 1,000 mg tablet,extended release 24 hr (Synjardy XR) gabapentin 600 mg tablet 1,200 mg PO HS 09/06/20 12/26/22 History pantoprazole 40 mg tablet,delayed 40 mg PO DAILY 09/06/20 12/26/22 History release paroxetine HCl 30 mg tablet (Paxil) 30 mg PO [facility] 09/06/20 12/26/22 History rosuvastatin 5 mg tablet 5 mg PO 09/06/20 12/26/22 History bupropion HCl 150 mg 24 hr tablet, 150 mg PO DAILY 12/26/22 12/26/22 History extended release loratadine 10 mg tablet (Claritin) 10 mg PO DAILY 12/26/22 12/26/22 History metoclopramide HCl 10 mg tablet 10 mg PO QID PRN nausea and 12/26/22 12/26/22 History (Reglan) vomiting multivitamin with minerals-folic 1 tablet PO DAILY 12/26/22 12/26/22 History acid 0.4 mg tablet Allergies Allergy/AdvReac Type Severity Reaction Status Date / Time blue dye Allergy Unknown Hives Verified 12/26/22 15:01 methylene blue Allergy Unknown BLUE DYE Verified 12/26/22 15:01 CAUSES HIVES Sulfa (Sulfonamide Allergy Unknown Rash Verified 12/26/22 15:01 Antibiotics) Exam Narrative: no acute distress normal breathing
--- NOTE | ~2022-12-29 | XR_ITS ---
EXAMINATION: XR fluoroscopy no charge DATE: 12/29/2022 10:37 INDICATION: Neurostim implant stage 2. TECHNIQUE: 2 intraoperative fluoroscopic views of the pelvis were obtained. I was not present. Fluoro scopy the time was 31 seconds. COMPARISON: CT abdomen and pelvis 04/04/2022 FINDINGS: An electrode overlies the sacrum on the left. IMPRESSION: 1. Electrode overlying the sacrum on the left. Reviewed, dictated and finalized at location A.
--- NOTE | 2022-12-29 07:19 | WPDHPUPDATE1 ---
History and Physical Update Update Date/Time: 12/29/22 07:19 History and Physical has been reviewed, including an updated exam of the patient. There are NO changes in the patient's condition. Risks, benefits, and alternatives have been discussed and questions answered. Patient agrees to proceed with procedure.
[2022-12-29 08:25] LABS: Glucose Point of Care 128 mg/dl (65-105)
--- NOTE | 2022-12-29 08:41 | WPDANESEPPF ---
Anes - Initial Pre Proc Eval Procedure: Operation Date: 12/29/22 09:45 Proposed Procedures p Neurostimulator Implant Stage Two - Joel Barbosa MD Date/Time: 12/29/22 08:41 Surgeon: Joel Barbosa MD Pre Op Diagnosis: urge incontinence Patient Data Age: 62 Gender: F Height: 1.6 m Weight: 74 kg Allergies Allergy/AdvReac Type Severity Reaction Status Date / Time blue dye Allergy Unknown Hives Verified 12/29/22 08:08 methylene blue Allergy Unknown BLUE DYE Verified 12/29/22 08:08 CAUSES HIVES Sulfa (Sulfonamide Allergy Unknown Rash Verified 12/29/22 08:08 Antibiotics) Home Medications Medication Instructions Recorded Confirmed Type aspirin 81 mg tablet 81 mg PO DAILY 09/06/20 12/26/22 History empagliflozin 5 mg-metformin ER 1 tablet PO [facility] 09/06/20 12/26/22 History 1,000 mg tablet,extended release 24 hr (Synjardy XR) gabapentin 600 mg tablet 1,200 mg PO HS 09/06/20 12/26/22 History pantoprazole 40 mg tablet,delayed 40 mg PO DAILY 09/06/20 12/26/22 History release paroxetine HCl 30 mg tablet (Paxil) 30 mg PO [facility] 09/06/20 12/26/22 History rosuvastatin 5 mg tablet 5 mg PO 09/06/20 12/26/22 History bupropion HCl 150 mg 24 hr tablet, 150 mg PO DAILY 12/26/22 12/26/22 History extended release loratadine 10 mg tablet (Claritin) 10 mg PO DAILY 12/26/22 12/26/22 History metoclopramide HCl 10 mg tablet 10 mg PO QID PRN nausea and 12/26/22 12/26/22 History (Reglan) vomiting multivitamin with minerals-folic 1 tablet PO DAILY 12/26/22 12/26/22 History acid 0.4 mg tablet Laboratory Tests 12/29/22 08:21 POC Capillary Glucose 128 H mg/dl (65-105) Patient hx anesthesia problems: none Family hx anesthesia problems: none Results Review: All pre-operative results and documents have been reviewed as part of the pre-operative evaluation. 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 Gastroparesis GERD (gastroesophageal reflux disease) Hyperlipidemia IBS (irritable bowel syndrome) Kidney stone Nail deformity Neoplasm ISABELLA (obstructive sleep apnea) Postprandial abdominal bloating Restless leg syndrome Surgical History Surgical History History of ankle surgery (~2011) left ankle tendonitis surgery History of bladder suspension procedure (~09/22/03) TVT History of cholecystectomy (~07/22/08) History of hip replacement (~10/13/18) left hip replacement History of sinus surgery (~02/21/19) History of tonsillectomy (~07/22/80) History of total right hip replacement (~09/09/09) History of total vaginal hysterectomy (TVH) (~09/21/01) menometrorrhagia Family History Family History Father Hypertension Heart disease Grandparent Hypertension maternal grandmother Diabetes mellitus maternal grandmother Cerebrovascular accident maternal grandmother Social History Social History Smoking packs per day: 0.5 Smoking cigarettes per day: 10.0 Years smoked: 16 Smoking pack-years: 8.00 Smoking status: Former smoker Tobacco type: cigarettes Second hand tobacco smoke exposure: No Smoking end date: 06/07/91 Alcohol intake: never Alcohol use details: rare use; 3-4 times per year Substance use: never Substance use type: does not use Living arrangements: with family Additional living arrangements comments: lives with spouse Feliciano Occupation/Education: retired Gender identity (if verbalized by the patient): Female Sexual Orientation (if Verbalized by the Patient): Straight or Heterosexual Spiritual care concerns: No
[2022-12-29] MEDS: LACTATED RINGERS 1,000 ML 30 ML IV CONT (08:47)
[2022-12-29] MEDS: ceFAZolin 2 GM/D5W 50 ML 2 GM/50 ML BAG IVPB (10:07)
[2022-12-29] MEDS: LIDO 1%/EPINEPHRINE 1:100,000 20 ML VIAL 21 ML INFILTRATE (10:38)
[2022-12-29 10:55] VITALS: BP 166/79; PULSE 81; RESP 16; O2SAT 96
[2022-12-29 10:55] LABS: Glucose Point of Care 131 mg/dl (65-105)
--- NOTE | 2022-12-29 10:59 | W.PM.PROC2 ---
Procedure Note - Detailed Date of Procedure 12/29/22 Pre-op Diagnosis urge incontinence Post-op Diagnosis Same Procedure Performed Implantation of sacral lead 41123 Placement of implantable pulse generator 12468 Complex neurostimulator programming impedance check 31090 Surgeon Joel Barbosa MD Anesthesia MAC and Local Indications This is a patient with refractory urge urinary incontinence. They have undergone a successful trial of sacral nerve stimulation. They present today for permanent implantation. They understand the risks of bleeding, infection, decreased efficacy, need for revision and battery changes. They agree to proceed Findings See dictated Description of Procedure They were correctly identified and informed consent was obtained. There brought to the operating room. There placed in the prone position. There given appropriate perioperative antibiotics. A time-out performed. I used fluoroscopy to felix out my sacral landmarks in the AP and the lateral orientation. I anesthetized the skin. I entered the S3 foramen. I monitored the needle with fluoroscopy. I got appropriate Eleni and toe response at a low threshold. I made a skin kenneth. I placed a stylet. I placed the lead introducer sheath. I thinned placed and deployed to my lead. I got appropriate responses again at a low threshold. I marked out the site of the pulse generator. I anesthetized the skin and made that incision. I created a subcutaneous pocket to house the pulse generator. I tunneled the lead towards this pocket. Appropriate connections were made between the lead and the battery. It was placed in the pocket. It was programmed and impedances were checked and found to be normal. I irrigated out all wounds. I ensured hemostasis. I closed the subcutaneous tissues with 2 Vicryl. I closed the skin with 4 0 Vicryl. Glue was applied. There then awakened and transferred to the PACU in stable condition. Implants Sacral neurostimulator Estimated Blood Loss 5 Drains No Packing No Pathology None sent Condition Stable Disposition PACU
[2022-12-29 11:25] VITALS: BP 136/70; PULSE 74; RESP 16
== END 2022-12-29 11:55 | disposition home or self-care (01) ==
PROVIDERS: Visit Provider Urology
PROC: (CPT 64561; principal; 2022-12-29 09:45)
DX: N39.41 Urge incontinence (principal); E13.43 Other specified diabetes mellitus with diabetic autonomic (poly)neuropathy; K31.84 Gastroparesis; G47.33 Obstructive sleep apnea (adult) (pediatric); K21.9 Gastro-esophageal reflux disease without esophagitis; E78.5 Hyperlipidemia, unspecified; F41.9 Anxiety disorder, unspecified; F32.A Depression, unspecified; G25.81 Restless legs syndrome; Z87.891 Personal history of nicotine dependence; Z79.84 Long term (current) use of oral hypoglycemic drugs; Z79.82 Long term (current) use of aspirin
CPT/HCPCS: 64561; 64590; 36415; 80048; 82948; 99199; C1767; C1778; C1787; J0690; J2250; J2704; J3010; J7120

== ENCOUNTER 2025-02-11 16:52 | Emergency (ER) | payer MEDICARE, SELFPAY ==
--- NOTE | ~2025-02-11 | CT_ITS ---
CT abdomen pelvis w con INDICATION:lower AP . COMPARISON: None. TECHNIQUE: Axial images of the abdomen and pelvis were obtained following infusion of 100 mL Isovue 300. Dose optimization technique was utilized. FINDINGS: The lung bases are clear. Fatty infiltration of the liver is noted. No intrahepatic mass or ductal dilatation is evident. The patient has had a cholecystectomy. The pancreas and spleen are normal in appearance. The adrenal glands are symmetric in size. The kidneys demonstrate symmetric uptake and excretion of contrast. No cystic mass is evident. There is no solid mass. There is no hydronephrosis. The stomach and bowel loops are unremarkable. The appendix is not visualized however no secondary signs of appendicitis are identified. Small fat-containing umbilical hernia. There is mild colonic diverticulosis without evidence of acute diverticulitis. The bladder and rectum are normal. No free intraperitoneal fluid or air is evident. There is no significant retroperitoneal lymphadenopathy. The aorta, visceral vessels and renal arteries demonstrate normal caliber and patency. Bilateral hip arthroplasty are noted. IMPRESSION: Small fat-containing umbilical hernia. There is mild colonic diverticulosis without evidence of acute diverticulitis. All CT scans at this facility are performed using low dose modulation techniques as appropriate to perform exam including the following: automated exposure control; use of iterative reconstruction technique; adjustment of the mA and/or kV according to patient size (this includes techniques or standardized protocols for targeted exams where dose is matched to indication/reason for exam). Reviewed, dictated and finalized at location S. IMPRESSION: Small fat-containing umbilical hernia. There is mild colonic diverticulosis without evidence of acute diverticulitis. All CT scans at this facility are performed using low dose modulation techniqu es as appropriate to perform exam including the following: automated exposure c ontrol; use of iterative reconstruction technique; adjustment of the mA and/or kV according to patient size (this includes techniques or standardized protocol s for targeted exams where dose is matched to indication/reason for exam).
[2025-02-11 17:40] VITALS: BP 141/77; PULSE 72; RESP 19; TEMP 36.7; O2SAT 96
[2025-02-11 18:15] VITALS: BP 141/77; PULSE 71; RESP 11; O2SAT 96
[2025-02-11 18:16] LABS: Add Urine Microscopic? YES; Appearance Urine Cloudy (Clear); Glucose Urine UA 3+ mg/dL (Negative); Leukocyte Esterase Ur Negative LEU/UL (Negative); Need Manual Microscopic Reviewed; Nitrate Urine Negative (Negative); Non Pathogenic Casts 0-2; Specific Grav Ur > 1.045 (1.001-1.035)
[2025-02-11 18:20] LABS: Hematocrit 42.8 % (37.0-47.0); Hemoglobin 13.8 g/dL (12.0-15.0); Immature Granulocyte Percent A 0.3 % (0-0.5); Lymphocytes Absolute Auto 2.18 K/mm3 (0.9-3.2); Mean Corpuscular HGB Conc 32.2 g/dl (32-36); Mean Corpuscular Hemoglobin 27.8 pg (26-34); Mean Corpuscular Volume 86.1 fl (80-100); Nucleated Red Blood Cells Absolute Auto 0.000 K/mm3 (0.0-0.012); Nucleated Red Blood Cells Perc 0.0 % (0.0-0.2); Platelet Count Result 231 k/mm3 (150-375); Red Blood Count 4.97 M/mm3 (4.2-5.4); White Blood Count 9.4 K/mm3 (4.5-10.0)
[2025-02-11 18:28] LABS: Alanine Aminotransferase 22 U/L (6-35); Albumin Level 4.1 g/dL (3.5-5.1); Alkaline Phosphatase 94 U/L (38-126); Anion Gap 9 mmol/L (4-12); Aspartate Amino Transferase 25 U/L (14-36); Bilirubin,Total 0.6 mg/dL (0.2-1.3); Blood Urea Nitrogen 9 mg/dL (7-17); Calcium 9.2 mg/dL (8.4-10.2); Carbon Dioxide 28 mmol/L (22-30); Chloride 103 mmol/L (98-107); Estimated CRCL calculation 91 ml/min; Estimated Glomerular Filt Rate > 60; Glucose 156 mg/dL (65-110); Lipase 427 U/L (23-300); Potassium 3.9 mmol/L (3.4-5.0); Sodium 140 mmol/L (137-145); Total Protein 7.1 g/dL (6.3-8.2)
[2025-02-11 18:55] VITALS: BP 134/71; PULSE 74; RESP 20; O2SAT 94
[2025-02-11 19:15] VITALS: BP 126/76; PULSE 78; RESP 21; O2SAT 94
[2025-02-11 20:00] VITALS: BP 150/72; PULSE 67; RESP 19; O2SAT 95
--- OUTSIDE RECORDS SUMMARY | 2025-02-11 20:18 | XMS_ITS | Encounter Summary ---
Author Organization [facility] Address [address] [place] [address] Care Team Providers Care Radio Mechanic Name Role Phone Carson Hernandez MD Primary Care Provider [phone] Reason for Visit * Reason Comments Provider Call Encounter Details Date Type Department Care Team (Late st Contact Info) Description 01/18/2024 Telephone [facility] Primary Care [address] [place] [address] Carson Hernandez MD [address] [place] [phone] Provider Call Social History Tobacco Use Types Packs/Day Years Used Date Smoking Tobacco: Former Cigarettes 0.5 16 0 09/05/1975 - 09/05/1991 Passive Smoke Exposure: Never Smokeless Tobacco: Never Alcohol Use Standard Drinks/Week Comments No 0 (1 standard drink = 0.6 oz pur e alcohol) Comments No Sex and Gender Information Value Date Recorded Sex Assigned at Not on file Legal Sex Female 1:20 PM CDT Gender Identity Not on file Sexual Orientation Not on file documented as of this encounter Miscellaneous Notes * Telephone Encounter - Ariane Butts LPN - 01/21/2024 10:28 AM CDT Synjardi requested in error. Pharmacy will fax over paperwork for Janumet approval. * Telephone Encounter - Carson Hernandez MD - 01/18/2024 3:31 PM CDT Why does she want synjardy Rx - she is taking Janumet??? * Telephone Encounter - Ariane Butts LPN - 01/18/2024 2:48 PM CDT Recent Visits Date Type Provider Dept 05/01/23 Office Visit Carson Hernandez MD [facility] 09/21/22 Office Visit Carson Hernandez MD [facility] 08/16/22 Office Visit Sergio Cartwright PA [facility] Showing recent visits within past 540 days with a meds authorizing provider and meeting all other requirements Future Appointments No visits were found meeting these conditions. Showing future appointments within next 150 days with a meds authorizing provider and meeting all other requirements * Telephone Encounter - Aleida Collier - 01/18/2024 1:33 PM CDT Copied from [facility] #[id number]. Topic: Hvjsbdhz-[id number] Call >> Jan 18, 2024 1:31 PM Aleida Vásquez wrote: Caller is requesting to speak with Clinical Care Team. Caller Name: [facility] Callback Number: [phone] Clinician Type: Other healthcare professional not listed above Call Notes: Rx saver calling because they need a script for Synjardy 25 mg/100 mg Is this addressing an immediate patient care need? No documented in this encounter Plan of Treatment Upcoming Encounters Date Type Department Care Team (Late st Contact Info) Description 04/14/2025 10:20 AM SHEET METAL WORKER MAINTENANCE Office Visit [facility] Primary Care [address] [place] [phone] [place] [address] [phone] documented as of this encounter Visit Diagnoses Not on filedocumented in this encounter Care Teams Radio Mechanic Relationship Specialty Start Date End Date Carson Hernandez MD PCP - General Internal Medicine 07/27/15 documented as of this encounter
--- OUTSIDE RECORDS SUMMARY | 2025-02-11 20:18 | XMS_ITS | Encounter Summary ---
Author Organization [facility] Address [address] [place] [address] Care Team Providers Care Curer Foam Rubber Name Role Phone Carson Hernandez MD Primary Care Provider [phone] Reason for Visit * Reason Comments Clinical Consult Before Scheduling Encounter Details Date Type Department Care Team (Late st Contact Info) Description 04/04/2024 Telephone [facility] Internal Medicine [address] [place] [address] Carson [place] [id number] [place] [address] [address] [place] [address] Clinical Consult Before Scheduling Social History Tobacco Use Types Packs/Day Years [...] Telephone Encounter - Ariane Butts LPN - 04/04/2024 9:46 AM TECHNOLOGIST INFECTIOUS DISEASE Pt made aware no appointments available today. Pt asked for OTC suggestions. Pt informed Svetlana Hives 24 HR and CeraVe Anti Itch Moisturising Lotion. Appt made for Sunday with PA. Pt may call to cancel or reschedule if she's feeling better by then. Pt advised if she starts to feel worse, itchy throat, swollen throat, trouble breathing,.lips swelling please go to ER immediately. Pt verbalized unde rstanding. NOLOGIST INFECTIOUS DISEASE * Telephone Encounter - Delmis Lima - 04/04/2024 9:19 AM CST Copied from [facility] #[id number]. Topic: Symptomatic Care >> Apr 04, 2024 9:12 AM Delmis Gilliland wrote: Caller has new symptoms and is seeking care. Age Range/Symptom: Adult: 18+ - Rash (Including Poison Thi) Does patient have any of the following other urgent symptoms: No urgent symptoms requiring warm call transfer Caller Name: Kendra Ly Callback Number: [phone] Call Notes: on set - yesterday - itchy red bumps (rash) - under breast, on her back, and all over abdomen. Otc- benadryl Merry is wanting to be seen today by ant one at anytime. No available appts with in the recommended time frame She is asking for a return call to discuss rash and is hoping to be placed on the schedule today [id number] [place], [place] - [facility] [facility] [address] [facility] [address] Hours: Not open 24 hours Please Advise Unable to schedule appointment within patient's desired timeframe. Patient declined all other options for immediate care, preferring to schedule first available. Scheduled appointment for n/a. If this is not clinically appropriate, please contact patient. NOLOGIST INFECTIOUS DISEASE documented in this encounter Plan of Treatment Upcoming Encounters Date Type Department Care Team (Late st Contact Info) Description 04/14/2025 10:20 AM TECHNOLOGIST INFECTIOUS DISEASE Office Visit [facility] Primary Care [facility] [address] [facility] [address] [place] [phone] [place] [address] [facility] [address] [place] [phone] documented as of this encounter Visit Diagnoses Not on filedocumented in this encounter Care Teams Curer Foam Rubber Relationship Specialty Start Date End Date Carson Hernandez MD PCP - General Internal Medicine 07/27/15 documented as of this encounter
--- OUTSIDE RECORDS SUMMARY | 2025-02-11 20:18 | XMS_ITS | Encounter Summary ---
Author Organization [facility] Address [address] [place] [address] Care Team Providers Care Portable Machine Cutter Name Role Phone Carson Hernandez MD Primary Care Provider [phone] Carson Hernandez MD Unavailable [phone] Encounter Details Date Type Department Care Team (Late st Contact Info) Description 03/14/2019 Lab Requisition [facility] Care Pathology Lab [address] [place] [address] Jeannette Fowler MD [address] [facility] [address] [place] [address] Illness, unspecified Social History Tobacco Use Types Packs/Day Years Used Date Smoking Tobacco: Former Smokeless Tobacco: Never Alcohol Use Standard Drinks/Week Comments Never 0 (1 standard drink = 0.6 oz pur e alcohol) AUDIT-C Answer Date Recorded Frequency of Alcohol Consumption Never 01/28/2019 Average Number of Drinks Not on file 019 Frequency of Binge Drinking Not on file 11/2018 Comments Unknown Sex and Gender Information Value Date Recorded Sex Assigned at Not on file Legal Sex Female 9:58 AM CDT Gender Identity Not on file Sexual Orientation Not on file documented as of this encounter Plan of Treatment Not on file documented as of this encounter Procedures Procedure Name Priority Date/Time Associated Diagnosis Comments PATHOLOGY TISSUE Routine 03/13/2019 1:00 PM PLATE FINISHER Illness, unspecified documented in this encounter Results * PATHOLOGY TISSUE (03/13/2019 1:00 PM PLATE FINISHER) Case Report Surgical Pathology Report Case: [id number] Authorizing Provider: Jeannette Fowler MD Collected: 03/13/2019 01:00 PM Ordering Location: [facility] Lab Received: 03/14/2019 11:19 AM Pathologist: Kyleigh Teran MD Specimen: Sinus 03/17/2019 3:55 PM PLATE FINISHER [facility] PATHOLOGY LAB Final Diagnosis Paranasal sinus, left and right sinus contents, FESS (A): - Chronic sinusitis - Greater than 50 eosinophils per high-power field 03/17/2019 3:55 PM [facility] PATHOLOGY LAB at [address] PLATE FINISHER Microscopic Description and Comment Sections show respiratory mucosa, blood, bone and a chronic inflammatory infiltrate composed of lymphocytes, plasma cells and eosinophils. The eosinophil count is greater than 50 per high-power field. 03/17/2019 3:55 PM [facility] Clinical History The patient is a 58-year-old woman with chronic sinusitis who underwent FESS. 03/17/2019 3:55 PM PLATE FINISHER [facility] PATHOLOG[facility] LAB Gross Description The requisition and specimen label(s) are identified with the patient name, Kendra Ly. Received in formalin, specimen A, right and left sinus contents is a white plastic suction device with attached cloth sock containing a 9.5 x 4.0 x 2.0 cm collection of soft red-wilkinson tissue fragments. A customer relations representative section is submitted in cassette A1. OEM/cml 03/17/2019 3:55 PM PLATE FINISHER [facility] PATHOLOG[facility] Disclaimer The performance characteristics of all immunohistochemical and indirect immunofluorescence stains (if any) cited in this report were determined by the [facility]. Some of these tests were developed by our own laboratory and have not been cleared or approved by the US Food and Drug Administration. The FDA does not require this test to go through premarket FDA review. These tests are used for clinical purposes. They should not be regarded as investigational or for research. This laboratory is certified under the Clinical Laboratory Improvement Amendments (CLIA) as qualified to perform high complexity clinical laboratory testing. This case has been personally reviewed and interpreted by the attending (teaching) pathologist. 03/17/2019 3:55 PM PLATE FINISHER [facility] PATHOLOG[facility] LAB Embedded Images 03/17/2019 3:55 PM PLATE FINISHER [facility] PATHOLOGY LAB Pathology/Cytolo gy SINUS / Unknown 03/13/2019 1:00 PM PLATE FINISHER 03/14/2019 11:19 AM PLATE FINISHER Jeannette Fowler MD LAB - PATHOLOGY/CYTOLOGY OR DERABLES Final Result [facility] PATHOLOG[facility] LAB [address] [phone] documented in this encounter Visit Diagnoses Diagnosis Illness, unspecified documented in this encounter Care Teams Portable Machine Cutter Relationship Specialty Start Date End Date Carson Hernandez MD [address] [place] [phone] PCP - General 01/28/19 Carson Hernandez MD [address] [place] [phone] Internal Medicine 01/28/19 documented as of this encounter
--- OUTSIDE RECORDS SUMMARY | 2025-02-11 20:18 | XMS_ITS | Clinical Summary ---
Author Organization [facility] Address [address] [place] [address] Care Team Providers Care Supervisor Vacuum Metalizing Name Role Phone Carson Hernandez MD Primary Care Provider [phone] Allergies Active Allergy Reactions Criticality Noted Date Comments Blue Dye Hives High 08/10/2015 Sulfa (Sulfonamide Antibiotics) Rash Low 07/22 Medications Calcium-Choleca lciferol, D3, 400-133.3 mg-unit Tablet Take 1 Tablet by mouth. Active azelastine (OPTIVAR) 0.05 % solution instil 1 drop into the affected ey(s) twice daily prn if eyes are irritated 18 mL 2 10/07/19 20 Active Additional Information Patient not taking.Reported on 02/05/2025 gabapentin (NEURONTIN) 600 mg tablet 600mg at 5pm, 900mg before bed 90 Tablet 01/22/20 20 Active levocetirizine (XYZAL) 5 mg tablet Take 5 mg by mouth 1 time daily as needed. 07/20/19 21 Active loratadine (CLARITIN) 10 mg tablet Take 10 mg by mouth daily. Active ALPRAZolam (XANAX) 0.25 mg tabletIndicatio ns:DAKOTAH (generalized anxiety disorder) Take 1 Tablet (0.25 mg) by mouth 3 times daily as needed for Anxiety. 60 Tablet 11/25/19 22 Active Additional Information Patient not taking.Reported on 02/05/2025 buPROPion HCL (WELLBUTRIN XL) 150 mg Extended Release 24 hour tablet take 1 tablet by mouth every day in the morning 90 Tablet 05/08/19 24 Active Additional Information Patient not taking.Reported on 02/05/2025 empagliflozin-m etformin (Synjardy XR) 25-1,000 mg tablet, IR & ER, biphasic 24hrIndications :Type 2 diabetes mellitus with hyperglycemia, without long-term current use of insulin Take 1 Tablet by mouth daily. 100 Tablet 3 03/17/20 24 Active rosuvastatin (CRESTOR) 20 mg tablet TAKE 1 TABLET BY MOUTH EVERYDAY AT BEDTIME 100 Tablet 3 05/01/19 25 Active traZODone (DESYREL) 50 mg tabletIndicatio ns:Psychophysio logical insomnia TAKE 1 TABLET BY MOUTH EVERYDAY AT BEDTIME 90 Tablet 3 06/18/19 25 Active fluconazole (DIFLUCAN) 200 mg tablet Take 1 Tablet by mouth daily. 08/17/19 25 Active pantoprazole (PROTONIX) 40 mg Tablet, Delayed Release (E.C.)Indicatio ns:GERD without esophagitis TAKE 1 TABLET BY MOUTH EVERY DAY 90 Tablet 3 10/09/19 25 Active amoxicillin (AMOXIL) 500 mg capsuleIndicati ons:Subacute sinusitis, unspecified location Take 1 Capsule (500 mg) by mouth 2 times daily. 14 Capsule 01/14/20 25 Active Additional Information Patient not taking.Reported on 02/05/2025 PARoxetine HCl (PAXIL) 30 mg tablet TAKE 1 TABLET BY MOUTH EVERY DAY 90 Tablet 3 01/28/20 25 Active PARoxetine HCl (PAXIL) 30 mg tablet take 1 tablet by mouth every day 90 Tablet 3 02/04/20 24 025 Discontinued Active Problems Patient Care Coordination No te Formatting of this note migh t be different from the original. Physical - 10/13 NEUROSURGERY [facility] - [place]/ [facility] [place] Problem Noted Date Diagnosed Date Aortic atherosclerosis 10/28/2021 Overview (10/28/2021): CT OSH 10/12 OAB (overactive bladder) 07/18/2021 Overview (05/01/2023): Interstim 9/23 Vitamin B12 deficiency (non anemic) 07/18/2019 Type 2 diabetes mellitus wit h microalbuminuria, without long-term current use of insulin 09/27/2017 Assessment & Plan (09/25/2024 2:46 PM CDT): A1c 8.1 Continue Synjardy Adequately controlled given co-morbid conditions, age, etc.. Continue current plan of care. Restless legs syndrome 08/10/2015 Overview (12/29/2016): On iron supplements - stopped 08/07 GERD without esophagitis 08/10/2015 Assessment & Plan (09/25/2024 2:46 PM CDT): Under care of GI Continues Pantoprazole Dyslipidemia 08/10/2015 Assessment & Plan (09/25/2024 2:46 PM CDT): On Statin Recheck FLP Mild recurrent major depression 08/10/2015 Assessment & Plan (09/25/2024 2:46 PM CDT): Stable on current meds ISABELLA (obstructive sleep apnea) 08/10/2015 Overview (05/01/2023): Stopped CPAP 04/13 due to weight loss Assessment & Plan (09/25/2024 2:46 PM CDT): Patient reported has not needed CPAP since loosing over 40 pounds Resolved Problems Problem Noted Date Diagnosed Date Resolved Date Type 2 diabetes mellitus wit h hyperglycemia, without long-term current use of insulin 09/27/2017 01/22/2020 Controlled type 2 diabetes m ellitus without complication, without long-term current use of insulin 12/07/2015 09/27/2017 Encounters Date Type Department Care Team Description 02/05/2025 2:20 PM CDT Video Visit [facility] Neurology [address] [facility] [address] [place] [address] Fabio Kan MD Nonintractable headache, unspecified chronicity pattern, unspecified headache type (Primary Dx); Headache, cervicogenic 02/04/2025 Telephone [facility] Virtual Neurology [address] [place] [address] Fabio Kan MD Appointment Notification 02/03/2025 Orders Only [facility] [address] [place] [address] [address] [place] [phone] Leta Gutiérreza, RELIGIOUS EDUCATION DIRECTOR Chronic nonintractable headache, unspecified headache type (Primary Dx) 01/30/2025 Telephone [facility] Internal Medicine [facility] [address] [address] [facility] [address] [place] [phone] Carson Hernandez MD Remote Monitoring 01/29/2025 Orders Only [facility] [address] [facility] [address] [place] [address] Provider, Abstract 01/27/2025 Refill [facility] Internal Medicine [facility] [address] [address] [facility] [address] [place] [address] Carson Hernandez MD 01/13/2025 9:30 AM CDT Office Visit [facility] [address] [place] [address] [address] [place] [address] Leta Gutiérreza, RELIGIOUS EDUCATION DIRECTOR Chronic nonintractable headache, unspecified headache type (Primary Dx); Subacute sinusitis, unspecified location; Need for influenza vaccination 01/06/2025 External Device Data [facility] ABSTRACTION Provider, Abstract from Last 3 Months Immunizations Immunization Administration Dates Next Due ([employer])(12 YR UP) COVID-19 VACCINE - EMERGENCY USE AUTHORIZATION, MRNA, [id number](PF) 30 MCG/0.3 ML IM SUSP 05/03/2021,08/06/2020,07/06/2020 (PNEUMOVAX 23)(50 YRS UP) PN EUMOCOCCAL POLYSACCHARIDE (PPV23) 0.5 ML, IM 12/25/2018 (PREVNAR 13)(6 WKS UP) PNEUM OCOCCAL CONJUGATE (PCV13) 0.5 ML, IM 02/24/2020 (SHINGRIX)(50 YRS UP) ZOSTER VACCINE RECOMBINANT, 0.5 ML, IM 05/01/2023 (SPIKEVAX) (12 YRS UP PRIMAR Y SERIES) COVID-19 VACCINE - [id number](PF) 100 MCG/0.5 ML IM SUSP 08/06/2020,07/06/2020 (TDVAX)(7 YRS UP) TETANUS AN D DIPHTHERIA TOXOIDS, ADSORBED (2 LF OF TETANUS TOXOID AND 2 LF OF DIPHTHERIA TOXOID), 0.5ML (PF), IM 12/16/2019 INFLUENZA VACCINE HIGH DOSE TRIVALENT SPLIT VIRUS, (65 YR UP), 0.5ML (PF), IM 01/13/2025 INFLUENZA VACCINE QUADRIVALE NT 6 MOS UP PF IM 05/01/2023,03/21/2022,02/24/2020 Influenza Seasonal Unspecifi ed Formulation IM 04/23/2021,01/22/2017,02/24/2016,02/21 Influenza Vaccine Quad Split 18 Yrs+ Im 01/30/2018 Family History Medical History Relation Name Comments Arthritis-rheumatoid Brother 2 Coronary Artery Disease Father Darrell Heart Disease Father Darrell High Cholesterol Father Darrell Hypertension Father Darrell Prostate Cancer Father Darrell Diabetes Maternal Grandmother Lili Stroke Maternal Grandmother Lili GERD Mother Janina High Cholesterol Mother Janina Hypertension Mother Janina Other Mother Janina pancreatitis Skin Cancer Mother Janina High Cholesterol Sister 3 Arthritis-rheumatoid Sister 4 Arthritis-rheumatoid Sister 5 Relation Name Status Comments Brother 1 Alive Brother 2 Father Darrell Alive Maternal Grandfather Maternal Grandmother Lili Alive Mother Janina Alive Paternal Grandfather Paternal Grandmother Sister 1 Alive Sister 2 Alive Sister 3 Sister 4 Sister 5 Sister 6 Alive Social History Tobacco Use Types Packs/Day Years Used Date Smoking Tobacco: Former Cigarettes 0.5 16 0 09/05/1975 - 09/05/1991 Passive Smoke Exposure: Past Smokeless Tobacco: Never Tobacco Cessation:Counseling Given: No Alcohol Use Standard Drinks/Week Comments No 0 (1 standard drink = 0.6 oz pur e alcohol) Comments No Sex and Gender Information Value Date Recorded Sex Assigned at Not on file Legal Sex Female 1:20 PM CDT Gender Identity Not on file Sexual Orientation Not on file Last Filed Vital Signs Vital Sign Reading Time Taken Comments Blood Pressure 122/78 01/13/2025 9:30 AM CDT Pulse 73 01/13/2025 9:27 AM CDT Temperature 36.3 C (97.4 F) 03/03/2024 1:40 PM MEDICAL PRACTICE MANAGER Respiratory Rate 16 03/21/2022 10:05 AM MEDICAL PRACTICE MANAGER Oxygen Saturation 96% 01/13/2025 9:27 AM CDT Inhaled Oxygen Concentration - - Weight 76.2 kg (168 lb) 01/13/2025 9:27 AM CDT Height 160 cm (5' 3) 01/13/2025 9:27 AM CDT Body Mass Index 29.76 01/13/2025 9:27 AM CDT Plan of Treatment Upcoming Encounters Date Type Department Care Team (Late st Contact Info) Description 04/14/2025 10:20 AM MEDICAL PRACTICE MANAGER Office Visit [facility] [address] [place] [address] [place] [id number] [address] Health Maintenance Due Date Last Done Comments FIT/ DNA Q 3 YEARS (AUTO ORDER) 08/08/1977 FIT/FOBT Q 1 YEAR (AUTO ORDER) 08/08/1977 FLEX SIG/CT COLONOGRAPHY Q 5 YEARS (AUTO ORDER) 08/08/1977 FIT-DNA Q 3 years 08/08/2004 FIT/FOBT Q 1 year 08/08/2004 Flex Sig/CT Colonography Q 5 years 08/08/2004 RSV VACCINE (60+ or ) (1 - Risk 50-74 years 1-dose series) 08/08/2009 DTAP/TDAP/TD VACCINES (1 - Tdap) 12/17/2019 12/16/19 20 ZOSTER VACCINE (2 of 2) 06/26/2023 05/01/2023 LDL CHOLESTEROL ANNUAL 04/30/2024 4, 03/20/2022, 07/15/2021, Additional history exists OSTEOPOROSIS SCREENING 08/08/2024 07/04/2012 COVID-19 Vaccine (6 - 2024-2 6 season) 2024 05/03/2021, 08/06/2020, 08/06/2020, Additional history exists PNEUMOCOCCAL VACCINE 50+ YEA RS (3 of 3 - PCV20 or PCV21) 02/23/2025 02/24/2020, 12/25/2018 DIABETES HBA1C Q 6 MONTHS 03/26/20252024, 04/30/2023, 09/21/2022, Additional history exists DIABETES ANNUAL RETINAL EXAM 07/04/2025 07/04/2024, 09/18/2018 BREAST CANCER SCREENING 08/27/2025 08/28/19 25, 08/27/2024, 08/27/2024, Additional history exists DIABETES MICROALBUMIN ANNUAL SCREEN 09/24/2025 09/24/2024, 04/30/2023, 03/20/2022, Additional history exists DIABETES ANNUAL FOOT EXAM 09/25/20252024, 09/21/2022, 07/18/2021, Additional history exists COLORECTAL CANCER SCREENING (AUTO ORDER) 09/16/2030 09/16/2020, 05/03/2010 COLORECTAL SCREENING 09/16/2030 09/16/2020, 05/03/2010, 05/03/2010 Colorectal Cancer Screening (AUTO ORDER) 09/16/2030 Colorectal Cancer Screening 09/16/2030 [place] Preventative Visit/Annual Wellness Visit Completed 09/25/2024, 09/21/2022, 07/18/2021, Additional history exists INFLUENZA VACCINE Completed 01/13/2025, , 03/21/2022, Additional history exists Medical Devices Implanted Type Area Medical Records Administrator Device Identifier Shelf Expiration Date Model / Serial / Lot Interstim X Bladder Stimulator Model [id number] Other Description:30 min scan time , pt to put in MRI mode Procedures Procedure Name Priority Date/Time Associated Diagnosis Comments MICROALBUMIN/CREATIN INE RATIO, RANDOM UR Routine 09/24/2024 1:21 PM CDT HEMOGLOBIN A1C Routine 09/24/2024 9:27 AM CDT MAMMO SCREEN BILAT W OR WO CAD Routine 08/27/2024 11:54 AM CDT HM DIABETES EYE EXAM Routine 07/04/2024 11:21 AM CDT LIPID PANEL Routine 04/30/2023 9:31 AM MEDICAL PRACTICE MANAGER Dyslipidemia ENDOSCOPY, COLON, SCREENING Routine 09/16/2020 from Last 3 Months or Most Recently Relevant to Health Maintenance Results * MICROALBUMIN/CREATININE RATIO, RANDOM UR (09/24/2024 1:21 PM CDT) CREATININE, URINE 50 20 - 275 mg/dL [facility] ALBUMIN, URINE 1.2 See Note: mg/dL [facility] Comment: Reference Range: Reference Range Not established ALB/CREAT RATIO, URINE 24 <30 mg/g creat [facility] Comment: The ADA defines abnormalities in albumin excretion as follows: Albuminuria Category Result (mg/g creatinine) Normal to Mildly increased <30 Moderately increased 30-299 Severely increased > OR = 300 The ADA recommends that at least two of three specimens collected within a 3-6 month period be abnormal before considering a patient to be within a diagnostic category. SPLIT 09/24/2024 FROM [id number] Test Performed at: [facility] [address] [place] [address] Stephan Maradiaga MD 09/24/2024 1:21 PM CDT 09/24/2024 1:21 PM CDT us Carson Hernandez MD URINE ORDERABLES Final Res ult [facility] [phone] [facility] [address] [place] [address] * (ABNORMAL) HEMOGLOBIN A1C (09/24/2024 9:27 AM CDT) HEMOGLOBIN A1C 8.1(H) <5.7 % of total Hgb [facility] Comment: For someone without known diabetes, a hemoglobin A1c value of 6.5% or greater indicates that they may have diabetes and this should be confirmed with a follow-up test. For someone with known diabetes, a value <7% indicates that their diabetes is well controlled and a value greater than or equal to 7% indicates suboptimal control. A1c targets should be individualized based on duration of diabetes, age, comorbid conditions, and other considerations. Currently, no consensus exists regarding use of hemoglobin A1c for diagnosis of diabetes for children. ESTIMATED AVERAGE GLUCOSE (MG/DL) 186 mg/dL [facility] ESTIMATED AVERAGE GLUCOSE (MMOL/L) 10.3 mmol/L [facility] Comment: COLLECTION KIT GIVEN TO PATIENT. PATIENT ADVISED TO RETURN. Test Performed at: [place] [address] [address] [place] [address] Stephan Maradiaga 09/24/2024 9:27 AM CDT 09/24/2024 9:27 AM CDT us Carson Hernandez MD CHEMISTRY ORDERABLES Final Result [facility] [phone] [place] [address] [address] [place] [address] * MAMMO SCREEN BILAT W OR WO CAD (08/27/2024 11:54 AM CDT) Anatomical Region Laterality Modality Breast Bilateral Mammography us Abstract Provider MAMMO ORDERABLES Edited Result - Final * DIABETES EYE EXAM (07/04/2024 11:21 AM CDT) us Abstract Provider HEALTH MAINTENANCE Edited Resu lt - Final [facility] CLPR# [id number] [address] [facility] [address] [place] [address] * (ABNORMAL) LIPID PANEL (04/30/2023 9:31 AM MEDICAL PRACTICE MANAGER) CHOLESTEROL 140 <200 mg/dL [facility] HDL 48(L) > OR = 50 mg/dL [facility] TRIGLYCERIDE 161(H) <150 mg/dL [facility] LDL CALCULATED 68 mg/dL (calc) [facility] Comment: Reference range: <100 Desirable range <100 mg/dL for primary prevention; <70 mg/dL for patients with CHD or diabetic patients with > or = 2 CHD risk factors. LDL-C is now calculated using the Ujni-Staples calculation, which is a validated novel method providing better accuracy than the Friedewald equation in the estimation of LDL-C. Juni KING et al. IRVING. 2013;310(19): 6751-9418 (http://education.Vend.[employer]/faq/LQZ850) CHOL/HDL RATIO 2.9 <5.0 (calc) [facility] TOTAL NON-HDL CHOL(LDL+VLDL) 92 <130 mg/dL (calc) [facility] Comment: For patients with diabetes plus 1 major ASCVD risk factor, treating to a non-HDL-C goal of <100 mg/dL (LDL-C of <70 mg/dL) is considered a therapeutic option. Test Performed at: [place] [address] [place] [address] Stephan Maradiaga Blood 04/30/2023 9:31 AM MEDICAL PRACTICE MANAGER 04/30/2023 9:31 AM MEDICAL PRACTICE MANAGER Carson Hernandez MD CHEMISTRY ORDERABLES Final Result Performing Organization Address City/[facility]/ZIP [facility] Phone Number [facility] [phone] [place] [address] [place] [address] * ENDOSCOPY, COLON, SCREENING (09/16/2020) Abstract Provider GI PROCEDURE ORDERABLES Edited Result - Final [facility]# [id number] [facility] [address] [address] from Last 3 Months or Most Recently Relevant to Health Maintenance Insurance RX AETNA Commercial Care Teams Supervisor Vacuum Metalizing Relationship Specialty Start Date End Date Carson Hernandez MD PCP - General Internal Medicine 07/27/15
--- OUTSIDE RECORDS SUMMARY | 2025-02-11 20:18 | XMS_ITS | Clinical Summary ---
Author Organization [facility] Address [address] [facility] [place] [address] Care Team Providers Care Manufacturing Job Titles Name Role Phone Carson Hernandez MD Primary Care Provider [phone] Carson Hernandez MD Unavailable [phone] Source Comments [facility],non-owned Affiliates and Associated Physician Practices is amultiple site organization consisting of ambulatory clinics and hospital sitesin [place], [place], [place] and [place]. This disclosure is being madepursuant to the Care Everywhere program and may not contain all information available regarding this patient. Last updated 18.[facility] Allergies Active Allergy Reactions Criticality Noted Date Comments Blue Dyes Urticaria Medium 01/12/2017 Sulfa Drugs Rash Medium 01/12/2017 Medications * Be aware that medications may not be up to date on this document. Alwaysverify current medications with the patient. pantoprazole (PROTONIX) 40 MG packet Take 1 (one) packet by mouth once daily Active PARoxetine (PAXIL) 30 MG tablet Take 1 (one) tablet by mouth once daily Active Empagliflozin-m etFORMIN HCl (SYNJARDY PO) Take 1 Dose by mouth as directed Active Multiple Vitamins-Minera ls (MULTIVITAMIN ADULT PO) Take 1 tablet by mouth once daily Active aspirin (ASPIRIN) 81 MG tablet Take 1 (one) tablet by mouth once daily Active Cyanocobalamin (B-12) 500 MCG Take 1 (one) tablet by mouth once daily Active loratadine (CLEAR-ATADINE) 10 MG tablet Take 1 (one) tablet by mouth once daily Active ALPRAZolam (XANAX) 0.25 MG tablet Take 1 (one) tablet by mouth once daily Active traZODone (DESYREL) 50 MG tablet Take 1 (one) tablet by mouth once daily Active gabapentin (NEURONTIN) 600 MG tablet Take 2 (two) tablets by mouth once daily 0 Active azelastine (OPTIVAR) 0.05 % ophthalmic solution Instill 1 (one) drop into both eyes as directed 0 Active gentamicin (GARAMYCIN) 0.3 % ophthalmic solution Instill 1 (one) drop into both eyes as directed 0 Active levocetirizine (XYZAL) 5 MG tablet TAKE 1 TABLET DAILY 90 tablet 3 1 Active Additional Information Patient taking differently: 5 mg Oral DAILY, Reported on 03/19/2023 alcaftadine (LASTACAFT) 0.25 % ophthalmic solution Instill 1 (one) drop into both eyes as directed Active Alpha-Lipoic Acid 600 MG Take 1 tablet by mouth once daily 0 Active Ascorbic Acid 1000 MG Take 1 (one) tablet by mouth once daily Active Magnesium 500 MG Take 1 tablet by mouth once daily Active rosuvastatin (CRESTOR) 20 MG tablet Take 1 (one) tablet by mouth once daily 1 Active budesonide (PULMICORT) 0.5 MG/2ML nebulizer suspension ADD 1 VIAL (0.5 MG) TO 120 ML NORMAL SALINE AND IRRIGATE IN NOSE TWICE A DAY 360 mL 3 2 Active metoclopramide (Reglan) 10 MG tablet Take 1 (one) tablet by mouth every 6 hours as needed 3 Active Active Problems Problem Noted Date Diagnosed Date Vitamin B12 deficiency (non anemic) 07/18/2019 Chronic pansinusitis 01/28/2019 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 (AF LURIA, FLUZONE TRIVALENT; 6MO+) (IIV3) 01/22/2017,02/24/2016,02/21/2015 Covid Moderna primary monova lent 12+ yr 0.5mL 07/06/2020 FLU VACCINE QUAD IIV4 SPLIT 0.25 ML IM 8 INFLUENZA VACCINE 01/21/2018 INFLUENZA VACCINE, QUADR. (F LUZONE; FLULAVAL; FLUARIX; AFLURIA QUADRIVALENT; 6MO+), 0.5 ML (IIV4) 02/24/2020,01/12/2017 PNEUMOCOCCAL PPSV23 12/25/2018 Pneumococcal Pcv13 Conj 02/24/2020 Td (Adult), 2 Lf Tetanus Tox oid, Adsorbed, Pf 12/16/2019 Family History Medical History Relation Name Comments Arthritis - Rheumatoid Brother Arthritis - Rheumatoid Father CAD (Coronary Artery Disease) Father Cancer - Other Father Hearing Loss - Unspecified Father Heart Failure Father Hypertension Father Anxiety Disorder Mother Cataract Mother Dementia Mother Depression Mother Glaucoma Mother Hyperlipidemia Mother Arthritis - Rheumatoid Sister Relation Name Status Comments Brother Father Mother Sister Social History Tobacco Use Types Packs/Day Years [...] Sign Reading Time Taken Comments Blood Pressure 128/78 09/14/2020 9:13 AM CDT Pulse 90 09/14/2020 9:13 AM CDT Temperature 36.7 C (98.1 F) 09/14/2020 9:13 AM CDT Respiratory Rate - - Oxygen Saturation - - Inhaled Oxygen Concentration - - Weight 73.9 kg (163 lb) 03/19/2023 2:20 PM YARD LABOR SUPERVISOR Height 160 cm (5' 3) 03/19/2023 2:20 PM YARD LABOR SUPERVISOR Body Mass Index 28.87 03/19/2023 2:20 PM YARD LABOR SUPERVISOR Plan of Treatment Health Maintenance Due Date Last Done Comments BONE DENSITY TESTING 1959 COLOGUARD (AGES 45-75) - COLON CA SCREENING 1959 COLON MONITORING 1959 COLONOSCOPY - COLON CA SCREENING 1959 CT COLONOGRAPHY - COLON CA SCREENING 1959 Colorectal Cancer Screening 1959 FIT - COLON CA SCREENING 1959 FLEX SIG - COLON CA SCREENING 1959 MAMMOGRAM 1959 HIV SCREENING 08/08/1974 HEPATITIS C SCREENING 08/04/1977 ZOSTER VACCINE (1 of 2) 08/08/2009 DTAP/TDAP/TD VACCINES (1 - Tdap) 12/17/2019 12/16/2019 DIABETES RETINOPATHY SCREENING 05/18/2020 DIABETES-FOOT EXAM WITH MONOFILAMENT 05/18/2020 DIABETES-HGB A1C 01/29/2021 07/30/2020 DIABETES-SERUM CREATININE 07/30/20212020, 07/30/2020, 07/30/2020 DEPRESSION SCREENING 04/23/2024 DIABETES - URINE PROTEIN SCREENING 04/23/2024 COVID-19 VACCINE (5 - season) 2024 05/03/2021, 08/06/2020, 08/06/2020, Additional history exists INFLUENZA VACCINE (#1) 2024 2, 04/23/2021, 02/24/2020, Additional history exists PNEUMOCOCCAL VACCINE 50+ (3 of 3 - PCV20 or PCV21) 02/23/2025 02/24/2020, 12/25/2018 Respiratory Syncytial Virus (RSV) Vaccine Pt: or over 60 yrs (1 - 1-dose 75+ series) 08/08/2034 HEPATITIS B VACCINE Aged Out No longe r eligible based on patient's age to complete this topic HIB VACCINE Aged Out No longer eligi ble based on patient's age to complete this topic HPV VACCINE Aged Out No longer eligi ble based on patient's age to complete this topic MENINGOCOCCAL (Group B) VACCINE SHARED DECISION-MAKING Aged Out No longer eligible based on patient's age to complete this topic MENINGOCOCCAL GROUPS A/C/Y/W VACCINE Aged Out No longer eligible based on patient's age to complete this topic Care Teams Manufacturing Job Titles Relationship Specialty Start Date End Date Carson Hernandez [place] [id number] [place] [address] [address] [place] [phone] PCP - General 01/28/19 Carson Hernandez [place] [id number] [place] [phone] Internal Medicine 01/28/19
--- OUTSIDE RECORDS SUMMARY | 2025-02-11 20:18 | XMS_ITS | Encounter Summary ---
Author Organization [facility] Address [address] [place] [address] Care Team Providers Care Biofuels Production Technician Name Role Phone Carson Hernandez MD Primary Care Provider [phone]- [phone] Reason for Visit * Reason Comments Medication Assistance Encounter Details Date Type Department Care Team (Late st Contact Info) Description 03/10/2024 Telephone [facility] [address] [place] [address] Carson Hernandez MD [address] [place] [phone] Medication Assistance Social History Tobacco Use Types Packs/Day Years [...] encounter Miscellaneous Notes * Telephone Encounter - Linda Coates - 03/10/2024 11:01 AM CST Can you cancel the PA on the Synjardy. Pt has given us a different pharmacy to send the medication to. I have to manually fax the rx to [facility] at . Sorry and thank you. T LINE SUPERVISOR * Telephone Encounter - Aleida Collier - 03/10/2024 9:54 AM CST Copied from [facility] #[id number]. Topic: Patient or Caregiver Communication Request >> Mar 10, 2024 9:52 AM Aleida Thalia wrote: Patient or Caregiver requesting advice Caller: Kendra Ly Patient/Caregiver Callback Number: Telephone Information: Call Notes: Patient calling to give the correct phone number to [facility] [phone] for her empagliflozin-metformin (Synjardy XR) 25-1,000 mg tablet, IR & ER, biphasic 24hr T LINE SUPERVISOR documented in this encounter Plan of Treatment Upcoming Encounters Date Type Department Care Team (Late st Contact Info) Description 04/14/2025 10:20 AM FIRST LINE SUPERVISOR Office Visit [facility] [address] [place] [address] Carson Hernandez MD [address] [place] [phone] documented as of this encounter Visit Diagnoses Not on filedocumented in this encounter Care Teams Biofuels Production Technician Relationship Specialty Start Date End Date Carson Hernandez MD PCP - General Internal Medicine 07/27/15 documented as of this encounter
--- OUTSIDE RECORDS SUMMARY | 2025-02-11 20:18 | XMS_ITS | Clinical Summary ---
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 Name Role Phone Carson Hernandez MD Primary Care Provider [phone] Allergies Active Allergy Reactions Criticality Noted Date Comments Blue Dye Hives Medium Sulfa (Sulfonamide Antibiotics) Rash Medium 03/31/2008 Reaction: RASH, Reaction: RASH Medications azelastine (OPTIVAR) 0.05 % ophthalmic solutionIndicatio ns:Allergic Conjunctivitis instil 1 drop into the affected ey(s) twice daily prn if eyes are irritated 11/17/19 15 Active calcium carbonate-vitamin D3 400-133.3 mg-unit tablet Take 1 tablet by mouth every morning Active SYNJARDY XR 25-1,000 mg tablet, IR & ER, biphasic 24hrIndications:t ype 2 diabetes mellitus Take 1 tablet by mouth every morning 10/02/19 18 Active PARoxetine (PAXIL) 30 mg tabletIndications :depression Take 1 tablet (30 mg total) by mouth every morning 09/30/19 18 Active rosuvastatin (CRESTOR) 20 mg tabletIndications :hyperlipidemia Take 5 mg by mouth nightly 09/07/[address] (PROTONIX) 40 mg EC tabletIndications :reflux Take 1 tablet (40 mg total) by mouth every morning 10/25/19 18 Active HYDROcodone-aceta minophen (NORCO) 5-325 mg per tabletIndications :Pain Take 1 tablet by mouth every 4 (four) hours as needed for pain 42 tablet 10/17/19 19 Active Additional Information Patient not taking.Reported on 10/04/2021 alpha lipoic acid 600 mg capsule 07/23/19 20 Active ascorbic acid (VITAMIN C) 1,000 mg tablet Active cyanocobalamin (Vitamin B-12) 1,000 mcg tablet Act marah loratadine-pseudo ephedrine (Allergy and Congestion Relief) 10-240 mg per 24 hr tablet Act marah magnesium oxide 500 mg capsule Activ e multivit with calcium,iron,min (MULTIVITAMIN-CHRISTINA CIUM AND IRON ORAL) Active betamethasone dipropionate (DEL-BETA) 0.05 % cream Apply topically 2 (two) times a day 10/07/19 20 Active guaiFENesin-codei ne (GUAITUSS AC) liquid 100-10 mg/5 mL codeine 10 mg-guaifenesin 100 mg/5 mL oral liquid Active ALPRAZolam (XANAX) 0.5 mg tablet alprazolam 0.5 mg tablet TAKE ONE TABLET DAILY AT BEDTIME NEEDED Active aspirin 81 mg enteric coated tablet Take 1 tablet (81 mg total) by mouth daily Active flu vaccine [id number],4 yr up, (FLUVIRIN [id number] IM) Fluvirin [id number] 45 mcg (15 mcg x 3)/0.5 mL intramuscular suspension ADM 0.5ML IM UTD Active gabapentin (NEURONTIN) 600 mg tablet TAKE 1 TABLET BY MOUTH AT DINNER AND 2 TABLETS AT BEDTIME 270 tablet 3 10/11/19 25 Active warfarin (COUMADIN) 1 mg tabletIndications :VTE Prophylaxis Following Ortho Surgery Take 1 tablet (1 mg total) by mouth daily 4 tabs for 4mg on 10/25 3 tabs for 3 mg on 10/26 3 tabs for 3 mg on 10/27 019 Discontin ued(Other ) Active Problems Problem Noted Date Diagnosed Date Tremor 11/15/2022 Achilles tendinitis of right lower extremity 07/2020 Premenstrual tension syndrome 08/27/2020 Vitamin B12 deficiency (non anemic) 07/18/2019 Chronic pansinusitis 01/28/2019 Natasha bullosa 01/28/2019 Hypertrophy of both inferior nasal turbinates Primary osteoarthritis of left hip 09/05/2018 Overview (09/05/2018): Added automatically from request for surgery [id number] Type 2 diabetes mellitus wit h microalbuminuria, without long-term current use of insulin 09/27/2017 Dyslipidemia 08/10/2015 GERD without esophagitis 08/10/2015 Mild recurrent major depression 08/10/2015 Allergic rhinitis due to house dust mite 015 Allergic rhinitis due to pollen 02/11/2015 History of chronic urticaria 02/11/2015 Obstructive sleep apnea syndrome 12/08/2014 Carpal tunnel syndrome 11/13/2013 Restless legs syndrome 03/06/2011 Overview (08/27/2020): On iron supplements - stopped 08/07 On iron supplements - stopped 08/07 Former smoker 09/07/2010 Encounters Date Type Department Care Team Description 11/21/2024 8:00 AM CDT Office Visit [facility] Medicine Neuro Sleep [address] [place] [address] [address] [place] [address] Jonny Gaspar, VIDAL Obstructive sleep apnea syndrome (Primary Dx); Restless legs syndrome; Psychophysiological insomnia from Last 3 Months Immunizations Immunization Administration Dates Next Due Influenza, Quadrivalent, Spl it, Intramuscular 01/30/2018 Influenza, Quadrivalent, Spl it, Preservative Free, Intramuscular 02/24/2020,01/12/2017 Influenza, Trivalent, IM (MDV) 01/22/2017,2015,02/21/2015 Influenza, Unspecified 01/21/2018 Moderna SARS-CoV-2 Monovalen t Vaccination (12+ YRS) 07/06/2020 Pneumococcal Conjugate PCV 13 02/24/2020 Pneumococcal Polysaccharide PPV23 12/25/2018 Td, adsorbed 12/16/2019 Surgical History Surgery Date Site/Laterality Comments CHOLECYSTECTOMY Cholecystectomy - (Added by TW Conv) WI TOTAL ABDOMINAL HYSTERECT W/WO RMVL TUBE OVARY Hysterectomy - (Added by TW Conv) TOTAL HIP ARTHROPLASTY Right Hip Replacement - (Added by TW Conv) FOOT SURGERY Foot Surgery - (Added by TW Conv) CHOLECYSTECTOMY Medical History Medical History Date Comments Personal history of other me ntal and behavioral disorders History of depression - - di agnosed in 2002. She was started on Paxil and has been on the same dose since then with excellent control of symptoms. She has tried weaning Paxil but this resulted in emotional lability and she resumed treatment. (Added by TW Conv) Anxiety Depression Diabetes mellitus Hypercholesteremia Kidney stone Sleep apnea, obstructive Urinary tract infection ISABELLA (obstructive sleep apnea) ASSINIBOINE AND [place] (hard of hearing) Family History Medical History Relation Name Comments Arthritis Father Family history of arthritis - (Added by TW Conv) Cancer Father Family history of malignant neoplasm - (Added by TW Conv) Heart disease Father Family history of cardiac disorder - (Added by TW Conv) Hypertension Father Family history of hypertension - (Added by TW Conv) Restless legs syndrome Other Restl ess Legs Syndrome - - older sister (Added by TW Conv) Relation Name Status Comments Father Other Social History Tobacco Use Types Packs/Day Years Used Date Smoking Tobacco: Former Cigarettes 0.5 16 1 976 - 1991 Smokeless Tobacco: Never Tobacco Cessation:Counseling Given: Not Answered Comments No Sex and Gender Information Value Date Recorded Sex Assigned at Not on file Legal Sex Female 5:16 AM [employer] Gender Identity Female 07/01/2018 10:52 AM CDT Sexual Orientation Not on file Obstetrics History Last Filed Vital Signs Vital Sign Reading Time Taken Comments Blood Pressure 137/84 11/21/2024 8:03 AM CDT Pulse 82 11/21/2024 8:03 AM CDT Temperature 36.3 C (97.3 F) 11/21/2024 8:03 AM CDT Respiratory Rate 18 10/29/2018 10:19 AM CDT Oxygen Saturation 95% 11/21/2024 8:03 AM CDT Inhaled Oxygen Concentration - - Weight 76.9 kg (169 lb 8 oz) 11/21/2024 8:03 AM CDT Height 160 cm (5' 3) 11/21/2024 8:03 AM CDT Body Mass Index 30.03 11/21/2024 8:03 AM CDT Plan of Treatment Health Maintenance Due Date Last Done Comments Albumin Creatinine Ratio, Urine 1959 Colon Cancer Screening-Colonoscopy 1959 Depression Screening 1959 Fall Risk Assessment 1959 Hepatitis C Screening 1959 Dilated Eye Exam 1959 Foot Exam 1959 Hepatitis B Screening 08/08/1977 Osteoporosis Screening-Bone Density Scan 07/04/2014 07/04/2012 eGFR 10/17/2019 10/16/2018, 09/24/2018 Lipid Panel 07/30/2021 07/30/2020, 04/04/2019 Zoster Vaccine (2 of 2) 06/26/2023 05/01/2023 Well Visit 65+ 08/08/2024 Covid-19 Vaccine (4 - 2024-2 6 season) 2024 05/03/2021, 08/06/2020, 08/06/2020, Additional history exists Influenza Vaccine (#1) 2024 , 03/21/2022, 04/23/2021, Additional history exists Pneumococcal vaccine 65+ (3 of 3 - PCV20 or PCV21) 02/23/2025 02/24/2020, 12/25/2018 Hemoglobin A1C 03/26/2025 09/24/2024, 11/2023, 09/21/2022, Additional history exists Breast Cancer Screening-Mammogram 08/27/2025 08/27/2024, 09/08/2022, 09/08/2022, Additional history exists DTaP/Tdap/Td Vaccine (2 - Td or Tdap) 12/22/2030 12/22/2020, 12/16/2019 Medical Devices Implanted Type Area Snuff Grinder And Screener Device Identifier Shelf Expiration Date Model / Serial / Lot [employer] [id number] 36mm High Wall Hip D Offset Liner Acetabular E1 - Sna - [id number] Implanted:Qty : 1 on 10/15/2018 by Daquan Alfredo MD at [facility] Other - see comments Left: Hip [employer] [id number] 05/19/2023 [id number] / NA / [id number] [employer] [id number] [id number] 50mm Limit Hole Color Coded Hip D Hemisphere Offset Shell - Sna - [id number] Implanted:Qty : 1 on 10/15/2018 by Daquan Alfredo MD at [facility] Other - see comments Left: Hip [employer] [id number] 05/19/2028 [id number] / NA / [id number] [employer] [id number] Taperloc 134mm Type 1 Press Fit Full Profile Hip 133d 7 Standard - Sna - [id number] Implanted:Qty : 1 on 10/15/2018 by Daquan Alfredo MD at [facility] Other - see comments Left: Hip [employer] 12/20/2025 [id number] / NA / [id number] [employer] [id number] 36mm Modular Hip Standard Head Femoral Biolox Delta - Sna - [id number] Implanted:Qty : 1 on 10/15/2018 by Daquan Alfredo MD at [facility] Other - see comments Left: Hip [employer] 05/09/2028 [id number] / NA / [id number] Procedures Procedure Name Priority Date/Time Associated Diagnosis Comments SCREENING MAMMOGRAM BILATERAL W JUVENTINO Schedule Routine, Read Routine (OP Routine) 08/27/2024 8:31 AM CDT Screening mammogram, encounter for EGFR Routine 10/16/2018 3:15 AM CDT HEMOGLOBIN A1C Routine 09/24/2018 11:25 AM CDT Type II or unspecified type diabetes mellitus with neurological manifestations, not stated as uncontrolled(250.60 ) ([facility]) DEXA AXIAL SKELETON BONE DENSITY 1 OR MORE SITES Routine 07/04/2012 2:39 PM CDT from Last 3 Months or Most Recently Relevant to Health Maintenance Results * Screening Mammogram Bilateral W Juventino (08/27/2024 8:31 AM CDT) Anatomical Region Laterality Modality Breast Bilateral Mammography Narrative 08/28/2024 4:05 PM CDT Mammogram Technique: Bilateral Digital Breast Tomosynthesis, Bilateral C-view 2D Screening mammogram. Views obtained: bilateral craniocaudal and bilateral mediolateral oblique. Computer Aided Detection was performed. Mammogram Findings: The present examination has been compared to prior imaging studies performed at [facility] on 06/06/2019, 09/17/2020 and 09/08/2022. There are scattered areas of fibroglandular density. There is no suspicious abnormality in either breast. There are no significant changes from the prior study. Impression: There is no mammographic evidence of malignancy. Annual screening mammography is recommended. OVERALL FINAL ASSESSMENT: BI-RADS CATEGORY 1: Negative. Procedure Note Erin Pierre MD - 08/28/2024 Mammogram Technique: Bilateral Digital Breast Tomosynthesis, Bilateral C-view 2D Screening mammogram. Views obtained: bilateral craniocaudal and bilateral mediolateral oblique. Computer Aided Detection was performed. Mammogram Findings: The present examination has been compared to prior imaging studies performed at [facility] on 06/06/2019, 09/17/2020 and 09/08/2022. There are scattered areas of fibroglandular density. There is no suspicious abnormality in either breast. There are no significant changes from the prior study. Impression: There is no mammographic evidence of malignancy. Annual screening mammography is recommended. OVERALL FINAL ASSESSMENT: BI-RADS CATEGORY 1: Negative. us Self Screening Mammogram IMG MAMMO PROCEDURES Fi nal Result * eGFR (10/16/2018 3:15 AM CDT) eGFR >60 mL/min/1.7 3 m2 SULY ELDRIDGE Comment: Interpretive Data Reference Interval Normal >/= 90 mL/min/1.73m2 Mildly decreased* 60 - 89 mL/min/1.73m2 Mildly to moderately decreased 45 - 59 mL/min/1.73m2 Moderately to severely decreased 30 - 44 mL/min/1.73m2 Severely decreased 15 - 29 mL/min/1.73m2 Kidney Failure < 15 mL/min/1.73m2 *Relative to young adult level If -Wallisian multiply value by 1.16. Estimated glomerular filtration rate is determined by the CKD-EPI equation recommended by the National Kidney Foundation (KDIGO 2012 Clinical Practice Guideline for the Evaluation and Management of Chronic Kidney Disease. Kidney Intnl Suppl Apr 2012;3:1). The CKD-EPI equation should not be used for patients with unstable renal function and has not been validated in children and those over 70. Current interpretive data was last reviewed 2015. Blood specimen (specimen) 10/16/2018 3:15 AM CDT 10/16/2018 4:17 AM CDT Sania Ly ELECTRONIC EQUIPMENT INSTALLER LAB BLOOD ORDERABLES Claudette l Result Performing Organization Address [facility] de Phone Number [facility] [address] [place] [address] * (ABNORMAL) Hemoglobin A1c (09/24/2018 11:25 AM CDT) [facility] Signature Hgb A1C 6.9(H) 4.0 - 5.6 % SULY ELDRIDGE Comment:Testing performed by : [facility], [address] [place] [address]., [address] Estimated Average Glucose 151 mg/dL SULY ELDRIDGE Comment: The ADA recommends reporting an estimated Average Glucose (eAG) with all Hemoglobin A1c results using the equation derived from a study of 507 normal and diabetic adults. Minority populations were underrepresented and children were not included. (Diabetes Care 31:4592-2344, 2008). The eAG is not equivalent to a fasting glucose. Testing performed by: [facility], [address] [place] [address]., [address] Blood specimen (specimen) 09/24/2018 11:25 AM CDT 09/24/2018 1:23 PM CDT Narrative SULY GARCIACH - 09/24/2018 1:44 PM CDT Daquan Alfredo MD LAB BLOOD ORDERABLES Final Result Performing Organization Address [facility] Co de Phone Number [facility] [address] [place] [address] * Dexa Axial Skeleton Bone Density 1 or 2 Site (07/04/2012 2:39 PM CDT) Anatomical Region Laterality Modality Body N/A Radiographic Marlys ging 07/04/2012 2:39 PM CDT Narrative 07/04/2012 6:39 PM CDT ZAMZAM JEREZ M.D. FINAL REPORT The radiology attending physician has personally reviewed this study, and has reviewed and/or edited this written report and agrees with it. ACC# Date Time Exam [id number] Jul 04, 2012 14:39:00 [id number] BONE DEXA (2 sites) EXAMINATION: BONE DENSITOMETRY OF THE SPINE AND HIP DATE OF STUDY: 07/04/2012 HISTORY: 51-year-old postmenopausal woman who is a former smoker. She is being treated with hormone replacement therapy as well as calcium and vitamin D supplements.. Evaluate bone mineral density. FINDINGS (SPINE): The bone mineral density of L1-L4 was assessed by dual-energy x-ray absorptiometry. The average bone mineral density within this region is 1.018 gm/sq-cm. This is 0.7 standard deviations above the mean of the average bone mineral density for age- and gender-matched subjects (the Z-score). It is 0.3 standard deviations below the mean peak bone mineral density in young adults (the T-score). FINDINGS (FEMORAL NECK): The bone mineral density of the left femoral neck was assessed by dual-energy x-ray absorptiometry. The average bone mineral density within the femoral neck region is 0.881 gm/sq-cm. This is 1.2 standard deviations above the mean of the average bone mineral density for age- and gender-matched subjects (the Z-score). It is 0.3 standard deviations above the mean peak bone mineral density in young adults (the T-score). FINDINGS (TOTAL HIP): The bone mineral density of the left hip was assessed by dual-energy x-ray absorptiometry. The average bone mineral density within the total hip region is 1.002 gm/sq-cm. This is 1.1 standard deviations above the mean of the average bone mineral density for age- and gender-matched subjects (the Z-score). It is 0.5 standard deviations above the mean peak bone mineral density in young adults (the T-score). SUMMARY OF CURRENT RESULTS: Region Exam Date BMD T-Score Z-Score AP Spine (L1-L4) 07/04/2012 1.018 -0.3 0.7 Femoral Neck (Left) 07/04/2012 0.881 0.3 1.2 Total Hip (Left) 07/04/2012 1.002 0.5 1.1 COMPARISON WITH PREVIOUS RESULTS Region Age BMD T-Score BMD Change BMD Change Exam Date g/cm2 vs Baseline vs Previous AP Spine(L1-L4) 07/04/2012 51 1.018 -0.3 -4.4%* -4.4%* 04/07/2010 49 1.065 0.2 Femoral Neck(Left) 07/04/2012 51 0.881 0.3 4.6%* 4.6%* 04/07/2010 49 0.842 -0.1 Total Hip(Left) 07/04/2012 51 1.002 0.5 -0.8% -0.8% 04/07/2010 49 1.010 0.6 * Indicates significant change IMPRESSION: - 1. The bone mineral density of the lumbar spine is normal. There has been a statistically significant decrease in bone mineral density since the baseline examination of 04/07/2010. 2. The bone mineral density of the left femoral neck is normal. There has been a statistically significant increase in bone mineral density since the baseline examination of 04/07/2010. 3. The bone mineral density of the left total hip is normal. There has been no significant change in bone mineral density since the baseline examination of 04/07/2010. 4. Overall, the above findings are normal by WHO criteria. 5. Calculation of fracture risk using the FRAX model is not appropriate in certain settings. It was not performed in this patient because the patient met one or more of the following conditions: pre-menopausal status, man under age 50, normal bone density, use of hormonal therapy within 1 year, use of anti-resorptive therapy within two years, or bilateral hip replacements. General comments regarding interpretation of bone mineral density measurements: a) In children, premenopausal woman and males under age 50 not at increased risk for fractures only Z-scores, not T-scores are used to indicate risk. A Z-score above -2.0 is defined as within the expected range for age and Z-score at or less than -2.0 is below the expected range for age. A Z-score below the expected range for age in a patient with recent fractures and/or chronic corticosteroid treatment is consistent with a diagnosis of osteoporosis. b) In post menopausal women and males over 50, comparison of the measured bone mineral density with the average value in young normal subjects (the T-score) has been found to be useful in assessing fracture risk. Fracture risk approximately doubles for each 1.0 standard deviation (SD) in individual's hip or spine bone mineral density is below the average value of young normal subjects. The World Health Organization (WHO) has defined T-scores of -1.0 to -2.5 as indicative of low bone mass (OSTEOPENIA), and T-scores of -2.5 or lower to be indicative of OSTEOPOROSIS, based on the site of lowest bone density. Note that there will be a change in reporting format and reference databases as patients move from the younger population (group a) to the older population (group b) The National Osteoporosis Foundation (www.nof.org) recommends adequate intake of calcium and vitamin D and regular weight-bearing exercise in all patients. They recommend pharmacologic treatment in postmenopausal women and men age 50 and older presenting with any of the followin) Osteoporosis, after appropriate evaluation to exclude secondary causes. 2) A hip or vertebral (clinical or radiographic) fracture, regardless of the bone density. 3) Low bone mass (Osteopenia) and one or more of: other prior fractures, secondary causes associated with high risk of fracture (such as glucocorticoid use or total immobilization), or computed high risk of fracture (10-yr probability of hip fracture >= 3% or a 10-yr probability of any major osteoporosis-related fracture >= 20% based on the [place].-adapted WHO algorithm), available at http://www.shef.ac.uk/FRAX). Requested By: Moiz Warren M.D. Dictated By: ZAMZAM HOSKINS M.D. on Jul 04 2012 2:40P This document has been electronically signed by: ANIL MCKENNA on Jul 04 2012 6:38P Procedure Note Provider, MD Mera - 08/20/2016 ZAMZAM JEREZ M.D. FINAL REPORT The radiology attending physician has personally reviewed this study, and has reviewed and/or edited this written report and agrees with it. ACC# Date Time Exam [id number] Jul 04, 2012 14:39:00 [id number] BONE DEXA (2 sites) EXAMINATION: BONE DENSITOMETRY OF THE SPINE AND HIP DATE OF STUDY: 07/04/2012 HISTORY: 51-year-old postmenopausal woman who is a former smoker. She is being treated with hormone replacement therapy as well as calcium and vitamin D supplements.. Evaluate bone mineral density. FINDINGS (SPINE): The bone mineral density of L1-L4 was assessed by dual-energy x-ray absorptiometry. The average bone mineral density within this region is 1.018 gm/sq-cm. This is 0.7 standard deviations above the mean of the average bone mineral density for age- and gender-matched subjects (the Z-score). It is 0.3 standard deviations below the mean peak bone mineral density in young adults (the T-score). FINDINGS (FEMORAL NECK): The bone mineral density of the left femoral neck was assessed by dual-energy x-ray absorptiometry. The average bone mineral density within the femoral neck region is 0.881 gm/sq-cm. This is 1.2 standard deviations above the mean of the average bone mineral density for age- and gender-matched subjects (the Z-score). It is 0.3 standard deviations above the mean peak bone mineral density in young adults (the T-score). FINDINGS (TOTAL HIP): The bone mineral density of the left hip was assessed by dual-energy x-ray absorptiometry. The average bone mineral density within the total hip region is 1.002 gm/sq-cm. This is 1.1 standard deviations above the mean of the average bone mineral density for age- and gender-matched subjects (the Z-score). It is 0.5 standard deviations above the mean peak bone mineral density in young adults (the T-score). SUMMARY OF CURRENT RESULTS: Region Exam Date BMD T-Score Z-Score AP Spine (L1-L4) 07/04/2012 1.018 -0.3 0.7 Femoral Neck (Left) 07/04/2012 0.881 0.3 1.2 Total Hip (Left) 07/04/2012 1.002 0.5 1.1 COMPARISON WITH PREVIOUS RESULTS Region Age BMD T-Score BMD Change BMD Change Exam Date g/cm2 vs Baseline vs Previous AP Spine(L1-L4) 07/04/2012 51 1.018 -0.3 -4.4%* -4.4%* 04/07/2010 49 1.065 0.2 Femoral Neck(Left) 07/04/2012 51 0.881 0.3 4.6%* 4.6%* 04/07/2010 49 0.842 -0.1 Total Hip(Left) 07/04/2012 51 1.002 0.5 -0.8% -0.8% 04/07/2010 49 1.010 0.6 * Indicates significant change IMPRESSION: - 1. The bone mineral density of the lumbar spine is normal. There has been a statistically significant decrease in bone mineral density since the baseline examination of 04/07/2010. 2. The bone mineral density of the left femoral neck is normal. There has been a statistically significant increase in bone mineral density since the baseline examination of 04/07/2010. 3. The bone mineral density of the left total hip is normal. There has been no significant change in bone mineral density since the baseline examination of 04/07/2010. 4. Overall, the above findings are normal by WHO criteria. 5. Calculation of fracture risk using the FRAX model is not appropriate in certain settings. It was not performed in this patient because the patient met one or more of the following conditions: pre-menopausal status, man under age 50, normal bone density, use of hormonal therapy within 1 year, use of anti-resorptive therapy within two years, or bilateral hip replacements. General comments regarding interpretation of bone mineral density measurements: a) In children, premenopausal woman and males under age 50 not at increased risk for fractures only Z-scores, not T-scores are used to indicate risk. A Z-score above -2.0 is defined as within the expected range for age and Z-score at or less than -2.0 is below the expected range for age. A Z-score below the expected range for age in a patient with recent fractures and/or chronic corticosteroid treatment is consistent with a diagnosis of osteoporosis. b) In post menopausal women and males over 50, comparison of the measured bone mineral density with the average value in young normal subjects (the T-score) has been found to be useful in assessing fracture risk. Fracture risk approximately doubles for each 1.0 standard deviation (SD) in individual's hip or spine bone mineral density is below the average value of young normal subjects. The World Health Organization (WHO) has defined T-scores of -1.0 to -2.5 as indicative of low bone mass (OSTEOPENIA), and T-scores of -2.5 or lower to be indicative of OSTEOPOROSIS, based on the site of lowest bone density. Note that there will be a change in reporting format and reference databases as patients move from the younger population (group a) to the older population (group b) The National Osteoporosis Foundation (www.nof.org) recommends adequate intake of calcium and vitamin D and regular weight-bearing exercise in all patients. They recommend pharmacologic treatment in postmenopausal women and men age 50 and older presenting with any of the followin) Osteoporosis, after appropriate evaluation to exclude secondary causes. 2) A hip or vertebral (clinical or radiographic) fracture,regardless of the bone density. 3) Low bone mass (Osteopenia) and one or more of: other prior fractures, secondary causes associated with high risk of fracture (such as glucocorticoid use or total immobilization), or computed high risk of fracture (10-yr probability of hip fracture >= 3% or a 10-yr probability of any major osteoporosis-related fracture >= 20% based on the [place].-adapted WHO algorithm), available at http://www.shef.ac.uk/FRAX). Requested By: Moiz Warren M.D. Dictated By: ZAMZAM HOSKINS M.D. on Jul 04 2012 2:40P This document has been electronically signed by: ANIL MCKENNA on Jul 04 2012 6:38P us Historical Provider MD DONOVAN DXA PROCEDURES Final Result from Last 3 Months or Most Recently Relevant to Health Maintenance Insurance [employer] [place] [facility] Subscriber Plan / Payer (Ef fective 2021-Present) Name:Kendra Ly Relation to Subscriber:Spouse Name:MALACHIDC Vásquez Date of :1957 Address: [address] [place] [id number] Payer ID:[id number] (NAIC) Type:AETNA HMO/PPO Address: [facility] [address] MEDICARE [facility] Address: [address] [address] [place] [address] [facility] Address: [address] [address] [place] [address] Advance Directives For more information, please contact: [phone] * Full Code (Latest Code Status on File) Date Activated Date Inactivated Comments 10/15/2018 9:06 AM 10/16/2018 6:24 PM 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
--- NOTE | 2025-02-11 21:05 | ED.GENADULT ---
HPI - General Adult General Chief complaint: Abdominal Pain Stated complaint: abd pain Time Seen by Provider: 02/11/25 17:46 History of Present Illness HPI narrative: Patient is a 64-year-old female who presents ER with crampy abdominal pain. Began low back bilaterally yesterday and has become suprapubic and periumbilical today. She is concerned she may have appendicitis. No fevers or chills or sweats. No diarrhea but has had some mild constipation. No fevers or chills. No chest pain. No alleviating factors. Has mild dysuria but no urinary frequency or urgency. Related Data Home Medications ?Medication ?Instructions ?Recorded ?Confirmed ?Last Taken ?Type aspirin 81 mg tablet 81 mg PO DAILY 09/06/20 08/06/24 12/18/22 History Held on 12/29/22. Instructions: Resume on 12/31/22. empagliflozin 5 mg-metformin ER 1 tablet PO [facility] 09/06/20 08/06/24 09/15/20 History 1,000 mg tablet,extended release 24 hr (Synjardy XR) gabapentin 600 mg tablet 1,200 mg PO 09/06/20 08/06/24 09/15/20 History pantoprazole 40 mg tablet,delayed 40 mg PO DAILY 09/06/20 08/06/24 09/15/20 History release paroxetine HCl 30 mg tablet (Paxil) 30 mg PO [facility] 09/06/20 08/06/24 09/15/20 History rosuvastatin 5 mg tablet 5 mg PO 09/06/20 08/06/24 09/15/20 History loratadine 10 mg tablet (Claritin) 10 mg PO DAILY 12/26/22 08/06/24 Unknown History multivitamin with minerals-folic 1 tablet PO DAILY 12/26/22 08/06/24 12/18/22 History acid 0.4 mg tablet Allergies Allergy/AdvReac Type Severity Reaction Status Date / Time blue dye Allergy Unknown Hives Verified 08/06/24 10:04 methylene blue Allergy Unknown BLUE DYE Verified 08/06/24 10:04 CAUSES HIVES Sulfa (Sulfonamide Allergy Unknown Rash Verified 08/06/24 10:04 Antibiotics) Review of Systems Review of Systems: All systems reviewed & are unremarkable except as noted in HPI and below Constitutional: Constitutional: Reports no additional constitutional complaints Cardiovascular: Cardiovascular: Reports no additional cardiovascular complaints Respiratory: Respiratory: Reports no additional respiratory complaints Gastrointestinal: Gastrointestinal: Reports no additional gastrointestinal complaints Genitourinary: Genitourinary: Reports no additional female genitourinary complaints [facility] Past Medical History Medical History Screening mammogram, encounter for Black stool Gastroparesis Ankle fracture, left (~1975) IBS (irritable bowel syndrome) Anxiety DM w/o complication type II Neoplasm Nail deformity Hyperlipidemia Body mass index [BMI] 32.0-32.9, adult (12/30/18) Postprandial abdominal bloating Depression Diabetes 1.5, managed as type 2 GERD (gastroesophageal reflux disease) ISABELLA (obstructive sleep apnea) Restless leg syndrome Kidney stone Surgical History Surgical History History of sinus surgery (~02/21/19) History of hip replacement (~10/13/18) left hip replacement History of ankle surgery (~2011) left ankle tendonitis surgery History of total right hip replacement (~09/09/09) History of cholecystectomy (~07/22/08) History of bladder suspension procedure (~09/22/03) TVT History of total vaginal hysterectomy (TVH) (~09/21/01) menometrorrhagia History of tonsillectomy (~07/22/80) Family History Family History (Updated 08/06/24 @ 10:11 by MARCIN Burt) Father Hypertension Heart disease Grandparent Hypertension maternal grandmother Diabetes mellitus maternal grandmother Cerebrovascular accident maternal grandmother Sibling H/O blood clots sister Social History Social History Smoking packs per day: 0.5 Smoking cigarettes per day: 10.0 Years smoked: 16 Smoking pack-years: 8.00 Smoking status: Former smoker Tobacco type: cigarettes Second hand tobacco smoke exposure: No Smoking end date: 06/07/91 Alcohol intake: never Alcohol use details: rare use; 3-4 times per year Substance use: never Substance use type: does not use Do You Feel Safe in your Home?: Yes Lack of Transportation: No Lack of Food: Never True Current Housing: I Have Housing Concerned About Future Housing: No Difficulty Paying Gas/Electric Bills: No Difficulty Paying for Meds: No Currently Unemployed: No Education: High School Diploma/GED Difficulty w/ Childcare or Family Care: No Living arrangements: with family Additional living arrangements comments: lives with spouse Feliciano Occupation/Education: retired Gender identity (if verbalized by the patient): Female Sexual Orientation (if Verbalized by the Patient): Straight or Heterosexual Spiritual care concerns: No Exam Narrative: GENERAL: Well-appearing, well-nourished, and in no acute distress. HEAD: Normocephalic, atraumatic. ENT: Mucous membranes moist. CHEST: Clear to auscultation. No respiratory distress. HEART: Regular rate and rhythm. Normal peripheral pulses. ABDOMEN: Soft, nontender, nondistended. EXTREMITIES: Normal range of motion. No edema. SKIN: Warm, dry, no rash. NEURO: Alert and oriented x3. PSYCH: Normal mood and affect. Course Course Emergency Course: Patient resting comfortably. Informed of lab and imaging results. Will treat for UTI home. Recommend increase water intake. Vital Signs Vital signs: Vital Signs Temperature 98.1 F 02/11/25 17:40 Pulse Rate 72 02/11/25 17:40 Respiratory Rate 19 02/11/25 17:40 Blood Pressure 141/77 H 02/11/25 17:40 Pulse Oximetry 96 02/11/25 17:40 Oxygen Delivery Room Air 02/11/25 17:40 Temperature 98.1 F 02/11/25 17:40 Pulse Rate 76 02/11/25 21:29 Respiratory Rate 18 02/11/25 21:29 Blood Pressure 144/76 H 02/11/25 21:29 Pulse Oximetry 97 02/11/25 21:29 Oxygen Delivery Room Air 02/11/25 17:40 Medical Decision Making Vital Signs Vital Signs: Vital Signs Temperature 98.1 F 02/11/25 17:40 Pulse Rate 72 02/11/25 17:40 Respiratory Rate 19 02/11/25 17:40 Blood Pressure 141/77 H 02/11/25 17:40 Pulse Oximetry 96 02/11/25 17:40 Oxygen Delivery Room Air 02/11/25 17:40 Temperature 98.1 F 02/11/25 17:40 Pulse Rate 76 02/11/25 21:29 Respiratory Rate 18 02/11/25 21:29 Blood Pressure 144/76 H 02/11/25 21:29 Pulse Oximetry 97 02/11/25 21:29 Oxygen Delivery Room Air 02/11/25 17:40 Lab Data Lab results reviewed: Yes I reviewed the patient's lab results. 02/11/25 18:11 02/11/25 18:11 Labs: Lab Results 02/11/25 02/11/25 Range/Units 17:57 18:11 WBC 9.4 (4.5-10.0) K/mm3 RBC 4.97 (4.2-5.4) M/mm3 Hgb 13.8 (12.0-15.0) g/dL Hct 42.8 (37.0-47.0) % MCV 86.1 (80-100) fl MCH 27.8 (26-34) pg MCHC 32.2 (32-36) g/dl RDW 13.4 (11.5-14.5) % Plt Count 231 (150-375) k/mm3 MPV 9.5 (7.4-10.4) fl Immature Gran % (Auto) 0.3 (0-0.5) % Neut % (Auto) 63.7 (45.5-73.1) % Lymph % (Auto) 23.3 (18.3-44.2) % [place] % (Auto) 7.2 (2.6-8.5) % Eos % (Auto) 4.8 H (0-4.4) % Baso % (Auto) 0.7 (0.2-1.2) % Lymph # (Auto) 2.18 (0.9-3.2) K/mm3 [place] # (Auto) 0.7 H (0.1-0.6) K/mm3 Eos # (Auto) 0.5 H (0-0.3) K/mm3 Baso # (Auto) 0.1 (0.0-0.1) K/mm3 Abs Immat Gran (auto) 0.03 (0.00-0.031) K/mm3 Absolute Neuts (auto) 6.0 (1.3-6.7) K/mm3 Absolute Nucleated RBC 0.000 (0.0-0.012) K/mm3 Nucleated RBC % 0.0 (0.0-0.2) % Sodium 140 (137-145) mmol/L Potassium 3.9 (3.4-5.0) mmol/L Chloride 103 (98-107) mmol/L Carbon Dioxide 28 (22-30) mmol/L Anion Gap 9 (4-12) mmol/L BUN 9 (7-17) mg/dL Creatinine 0.50 L (0.7-1.0) mg/dL Estim Creat Clear Calc 91 ml/min Estimated GFR > 60 (59 - ) Glucose 156 H (65-110) mg/dL Calcium 9.2 (8.4-10.2) mg/dL Total Bilirubin 0.6 (0.2-1.3) mg/dL AST 25 (14-36) U/L ALT 22 (6-35) U/L Alkaline Phosphatase 94 (38-126) U/L Total Protein 7.1 (6.3-8.2) g/dL Albumin 4.1 (3.5-5.1) g/dL Lipase 427 H (23-300) U/L Urine Color Yellow (Yellow) Urine Appearance Cloudy H (Clear) Urine pH 5.0 (5.0-9.0) Ur Specific [place] > 1.045 H (1.001-1.035) Urine Protein Trace (Negative) mg/dL Urine Glucose (UA) 3+ H (Negative) mg/dL Urine Ketones Trace H (Negative) mg/dL Ur Blood (Man) Negative (Negative) Urine Nitrate Negative (Negative) Urine Bilirubin Negative (Negative) Urine Urobilinogen 0.2 (<2.0) mg/dL Add Ur Microanalysis Reviewed Leukocyte Esterase Rfl Negative (Negative) TEJA/UL Urine RBC 0-2 (0-2) /hpf Urine WBC 51-100 H (0-3) /hpf Ur Squamous Epith Cells Occasional (Few) /hpf Urine Bacteria None seen /hpf Urine Casts 0-2 Imaging Data Radiologist's impression: ITS Impressions Abdomen/Pelvis CT 02/11/25 20:37 IMPRESSION: Small fat-containing umbilical hernia. There is mild colonic diverticulosis without evidence of acute diverticulitis. All CT scans at this facility are performed using low dose modulation techniques as appropriate to perform exam including the following: automated exposure control; use of iterative reconstruction technique; adjustment of the mA and/or kV according to patient size (this includes techniques or standardized protocols for targeted exams where dose is matched to indication/reason for exam). Discharge Plan Discharge Clinical Impression: Acute UTI Patient Disposition: Home Condition: Stable Instructions: Antibiotic Form, Urinary Tract Infection in Women (ED) Additional Instructions: You should return to the emergency department if you develop severe nausea and vomiting and are unable to keep liquids down, if you develop severe back/flank or stomach pain, or if your symptoms are not clearly improving at home. Patient Language: Turkish Prescriptions: New cephalexin 500 mg capsule 500 mg PO Q12H Qty: 14 0RF No Action fluconazole [Diflucan] 200 mg tablet 200 mg PO DAILY Qty: 2 6RF gabapentin 600 mg tablet 1,200 mg PO HS aspirin 81 mg Tablet 81 mg PO DAILY paroxetine HCl [Paxil] 30 mg Tablet 30 mg PO QAM Synjardy XR 5-1,000 mg Tablet, Ir - Er, Biphasic 24hr 1 tablet PO QAM rosuvastatin 5 mg Tablet 5 mg PO HS pantoprazole 40 mg Tablet,Delayed Release (Dr/Ec) 40 mg PO DAILY loratadine [Claritin] 10 mg Tablet 10 mg PO DAILY multivit with min-folic acid 0.4 mg Tablet 1 tablet PO DAILY Follow-up/Referrals: Feliciano Dallas MD [Physician, Family Practice] - 1 Week PHYSICIAN,SOLAR ENERGY SPECIALIST [Primary Care Provider, Internal Medicine]
[2025-02-11 21:29] VITALS: BP 144/76; PULSE 76; RESP 18; O2SAT 97
== END 2025-02-11 21:30 | disposition home or self-care (01) ==
PROVIDERS: Physician Assistant; Emergency Provider Emergency Medicine
DX: N39.0 Urinary tract infection, site not specified (principal); E11.9 Type 2 diabetes mellitus without complications; E78.5 Hyperlipidemia, unspecified; K21.9 Gastro-esophageal reflux disease without esophagitis; G47.33 Obstructive sleep apnea (adult) (pediatric); Z96.643 Presence of artificial hip joint, bilateral; Z87.891 Personal history of nicotine dependence
CPT/HCPCS: 36415; 74177; 80053; 81001; 83690; 85025; 87086; 99284; Q9967

== ENCOUNTER 2025-03-29 11:50 | Emergency (ER) | payer MEDICARE, SELFPAY ==
[2025-03-29] VITALS (7 sets, daily range): BP systolic 130–157; BP diastolic 64–89; PULSE 64–94; RESP 12–24; TEMP 36.4–36.6; O2SAT 95–99
--- NOTE | 2025-03-29 12:09 | ECG_ITS ---
Test Date: 2025-03-29 12:37:41 Measurements Intervals [place] Rate: 87 P: 52 NC: 148 QRS: -49 QRSD: 93 T: 33 QT: 369 QTc: 445 Interpretive Statements SINUS RHYTHM LEFT ANTERIOR FASCICULAR BLOCK CANNOT R/O SEPTAL INFARCT, AGE INDETERMINATE ABNORMAL ECG No previous ECG available for comparison Electronically Signed On 03-29-2025 19:38:21 IT SECURITY ADMINISTRATOR by Boston Crowell D.O.
[2025-03-29 12:31] LABS: Hematocrit 43.1 % (37.0-47.0); Hemoglobin 14.0 g/dL (12.0-15.0); Immature Granulocyte Percent A 0.5 % (0-0.5); Lymphocytes Absolute Auto 1.75 K/mm3 (0.9-3.2); Mean Corpuscular HGB Conc 32.5 g/dl (32-36); Mean Corpuscular Hemoglobin 28.0 pg (26-34); Mean Corpuscular Volume 86.2 fl (80-100); Nucleated Red Blood Cells Absolute Auto 0.000 K/mm3 (0.0-0.012); Nucleated Red Blood Cells Perc 0.0 % (0.0-0.2); Platelet Count Result 249 k/mm3 (150-375); Red Blood Count 5.00 M/mm3 (4.2-5.4); White Blood Count 8.7 K/mm3 (4.5-10.0)
[2025-03-29 12:35] LABS: Add Urine Microscopic? YES; Appearance Urine Cloudy (Clear); Glucose Urine UA 3+ mg/dL (Negative); Leukocyte Esterase Ur 1+ LEU/UL (Negative); Nitrate Urine Positive (Negative); Non Pathogenic Casts 0-2; Specific Grav Ur 1.025 (1.001-1.035)
[2025-03-29 12:43] LABS: Alanine Aminotransferase 23 U/L (6-35); Albumin Level 4.3 g/dL (3.5-5.1); Alkaline Phosphatase 87 U/L (38-126); Anion Gap 10 mmol/L (4-12); Aspartate Amino Transferase 31 U/L (14-36); Bilirubin,Total 0.8 mg/dL (0.2-1.3); Blood Urea Nitrogen 12 mg/dL (7-17); Calcium 9.5 mg/dL (8.4-10.2); Carbon Dioxide 25 mmol/L (22-30); Chloride 105 mmol/L (98-107); Estimated CRCL calculation 83 ml/min; Estimated Glomerular Filt Rate > 60; Glucose 236 mg/dL (65-110); INR 1.0; Magnesium 1.6 mg/dL (1.6-2.3); Potassium 3.6 mmol/L (3.4-5.0); Prothrombin Time 13.6 Seconds (11.1-14.7); Sodium 140 mmol/L (137-145); Total Protein 7.6 g/dL (6.3-8.2)
[2025-03-29 12:44] LABS: Acetaminophen < 10 ug/mL (10-30); Partial Thromboplastin Time 26.9 Seconds (22.3-36.8); Salicylate < 1.0 mg/dL (2-20)
[2025-03-29 12:47] LABS: Cannabinoid Screen Urine Negative (Negative)
[2025-03-29] MEDS: NITROFURANTOIN MONOHYD MACROCR 100 MG CAP PO (13:12)
--- NOTE | 2025-03-29 13:15 | PC.NURSE ---
unable to fully clean/make the room SI safe due to needing to medically clear pt after overdose
--- NOTE | 2025-03-29 13:16 | PC.NURSE ---
Spoke with Kelley with [place] poison control. She states peak time for paroxetine is 5-6 hours and would observe pt for 6-8 hours. Would recommend symptomatic treatment. Can use benzos for agitation, anxiety and any antiemetic for nausea. Seizure can occur but is not as likely. Would also recommend repeat EKG in 6 hours to watch for QT prolongation
[2025-03-29 13:19] LABS: Thyroid Stimulating Hormone 1.110 uIU/mL (0.465-4.680)
--- NOTE | 2025-03-29 14:42 | ED.OVERDOSE ---
HPI - Overdose General Chief Complaint: Overdose Stated Complaint: SI, possible overdose Time Seen by Provider: 03/29/25 12:09 History of Present Illness HPI Narrative: Patient has history of depression on paroxetine for 20 something years, over the last day or 2 she has been feeling she is being disrespected, she feels like people keep correcting the way she speaks, yesterday was at a [employer] with her family members but they did not have enough chairs for her or her , she felt very slighted And and breast trauma, she had to go to the bathroom she came back and mentioned that she really had needed togo, she was told nobody else need to know that, and she felt slighted again. This morning her had said something to her that felt short, she then went to the medicine cabinet pulled out a handful of her paroxetine and took it. She thinks it may have been 10 or 12. She feels like nobody really wants her there. Related Data Home Medications ?Medication ?Instructions ?Recorded ?Confirmed ?Last Taken ?Type aspirin 81 mg tablet 81 mg PO DAILY 09/06/20 08/06/24 12/18/22 History Held on 12/29/22. Instructions: Resume on 12/31/22. empagliflozin 5 mg-metformin ER 1 tablet PO [facility] [place] 09/06/20 08/06/24 09/15/20 History 1,000 mg tablet,extended release 24 hr (Synjardy XR) gabapentin 600 mg tablet 1,200 mg PO 09/06/20 08/06/24 09/15/20 History pantoprazole 40 mg tablet,delayed 40 mg PO DAILY 09/06/20 08/06/24 09/15/20 History release paroxetine HCl 30 mg tablet (Paxil) 30 mg PO [facility] [place] 09/06/20 08/06/24 09/15/20 History rosuvastatin 5 mg tablet 5 mg PO 09/06/20 08/06/24 09/15/20 History loratadine 10 mg tablet (Claritin) 10 mg PO DAILY 12/26/22 08/06/24 Unknown History multivitamin with minerals-folic 1 tablet PO DAILY 12/26/22 08/06/24 12/18/22 History acid 0.4 mg tablet Allergies Allergy/AdvReac Type Severity Reaction Status Date / Time blue dye Allergy Unknown Hives Verified 03/29/25 11:52 methylene blue Allergy Unknown BLUE DYE Verified 03/29/25 11:52 CAUSES HIVES Sulfa (Sulfonamide Allergy Unknown Rash Verified 03/29/25 11:52 Antibiotics) Review of Systems Review of Systems: All systems reviewed & are unremarkable except as noted in HPI and below PMFSH Past Medical History Medical History Screening mammogram, encounter for Black stool Gastroparesis Ankle fracture, left (~1975) IBS (irritable bowel syndrome) Anxiety DM w/o complication type II Neoplasm Nail deformity Hyperlipidemia Body mass index [BMI] 32.0-32.9, adult (12/30/18) Postprandial abdominal bloating Depression Diabetes 1.5, managed as type 2 GERD (gastroesophageal reflux disease) ISABELLA (obstructive sleep apnea) Restless leg syndrome Kidney stone Surgical History Surgical History History of sinus surgery (~02/21/19) History of hip replacement (~10/13/18) left hip replacement History of ankle surgery (~2011) left ankle tendonitis surgery History of total right hip replacement (~09/09/09) History of cholecystectomy (~07/22/08) History of bladder suspension procedure (~09/22/03) TVT History of total vaginal hysterectomy (TVH) (~09/21/01) menometrorrhagia History of tonsillectomy (~07/22/80) Family History Family History (Updated 08/06/24 @ 10:11 by MARCIN Burt) Father Hypertension Heart disease Grandparent Hypertension maternal grandmother Diabetes mellitus maternal grandmother Cerebrovascular accident maternal grandmother Sibling H/O blood clots sister Social History Social History Smoking packs per day: 0.5 Smoking cigarettes per day: 10.0 Years smoked: 16 Smoking pack-years: 8.00 Smoking status: Former smoker Tobacco type: cigarettes Second hand tobacco smoke exposure: No Smoking end date: 06/07/91 Alcohol intake: never Alcohol use details: rare use; 3-4 times per year Substance use: never Substance use type: does not use Lack of Transportation: No Lack of Food: Never True Current Housing: I Have Housing Concerned About Future Housing: No Difficulty Paying Gas/Electric Bills: No Difficulty Paying for Meds: No Currently Unemployed: No Education: High School Diploma/GED Difficulty w/ Childcare or Family Care: No Living arrangements: with family Additional living arrangements comments: lives with spouse Feliciano Occupation/Education: retired Gender identity (if verbalized by the patient): Female Sexual Orientation (if Verbalized by the Patient): Straight or Heterosexual Spiritual care concerns: No Exam Narrative: EXAMINATION OF ORGAN SYSTEMS/BODY AREAS: Constitutional: Vital signs per nursing GENERAL:[No acute distress, non-toxic appearing.] HEAD: Normal with no signs of head trauma. EYES: EOMI, conjunctiva normal ENT: Hearing grossly intact LUNGS: Nonlabored breathing. HEART: [Regular rate and rhythm] ABD: [Soft], [nontender to palpation] EXT: Normal range of motion SKIN: [No rashes or lesions.] NEURO: [Alert. No gross focal sensory or strength deficits.] PSYCH: Intermittently tearful affect Course Vital Signs Vital signs: Vital Signs Temperature 97.8 F 03/29/25 11:54 Pulse Rate 94 03/29/25 11:54 Respiratory Rate 16 03/29/25 11:54 Blood Pressure 157/89 H 03/29/25 11:54 Pulse Oximetry 97 03/29/25 11:54 Temperature 97.8 F 03/29/25 11:54 Pulse Rate 78 03/29/25 15:01 Respiratory Rate 24 H 03/29/25 15:01 Blood Pressure 130/75 03/29/25 15:01 Pulse Oximetry 96 03/29/25 15:01 Oxygen Delivery Room Air 03/29/25 13:18 MDM MDM Narrative Medical decision making narrative: History obtained from patient, as well as family members at bedside Presents after attempted overdose as she has been feeling very down, and disrespected and excluded by her family members, so took a handful of her paroxetine. Denies any somatic complaints. She has never been hospitalized for psychiatric illness in the past. Well-appearing here with normal exam. Po[facility] Control Center consultation who recommends symptomatic management and observation for at least 6-8 hours. EKG - 12-Lead: Performed at 1237. Interpreted by me. [Sinus rhythm]. Rate 87. Left axis. TX-interval [normal]. QRS duration [normal]. QTc [normal]. [No ST segment elevation or depression]. [T-wave normal]. Impression: No EKG evidence of acute ischemia or dysrhythmia. On re-evaluation after 7 hours post ingestion, she is still well-appearing in no distress. Medically cleared for psychiatric evaluation. Accepted at [facility] by Dr Alvares. Stable for transfer at this time. Differential Diagnosis Differential Diagnosis: Depression, suicidal ideation, drug overdose, arrhythmia Lab Data 03/29/25 12:23 03/29/25 12: Labs: Lab Results 03/29/25 03/29/25 03/29/25 Range/Units 12:23 15:03 16:05 WBC 8.7 (4.5-10.0) K/mm3 RBC 5.00 (4.2-5.4) M/mm3 Hgb 14.0 (12.0-15.0) g/dL Hct 43.1 (37.0-47.0) % MCV 86.2 (80-100) fl MCH 28.0 (26-34) pg MCHC 32.5 (32-36) g/dl RDW 13.5 (11.5-14.5) % Plt Count 249 (150-375) k/mm3 MPV 9.4 (7.4-10.4) fl Immature Gran % (Auto) 0.5 (0-0.5) % Neut % (Auto) 70.3 (45.5-73.1) % Lymph % (Auto) 20.2 (18.3-44.2) % [place] % (Auto) 5.4 (2.6-8.5) % Eos % (Auto) 2.8 (0-4.4) % Baso % (Auto) 0.8 (0.2-1.2) % Lymph # (Auto) 1.75 (0.9-3.2) K/mm3 [place] # (Auto) 0.5 (0.1-0.6) K/mm3 Eos # (Auto) 0.2 (0-0.3) K/mm3 Baso # (Auto) 0.1 (0.0-0.1) K/mm3 Abs Immat Gran (auto) 0.04 H (0.00-0.031) K/mm3 Absolute Neuts (auto) 6.1 (1.3-6.7) K/mm3 Absolute Nucleated RBC 0.000 (0.0-0.012) K/mm3 Nucleated RBC % 0.0 (0.0-0.2) % PT 13.6 (11.1-14.7) Seconds INR 1.0 APTT 26.9 (22.3-36.8) Seconds Sodium 140 (137-145) mmol/L Potassium 3.6 (3.4-5.0) mmol/L Chloride 105 (98-107) mmol/L Carbon Dioxide 25 (22-30) mmol/L Anion Gap 10 (4-12) mmol/L BUN 12 (7-17) mg/dL Creatinine 0.56 L (0.7-1.0) mg/dL Estim Creat Clear Calc 83 ml/min Estimated GFR > 60 (59 - ) Glucose 236 H (65-110) mg/dL Lactic Acid 2.4 H 1.8 (0.7-2.0) mmol/L Calcium 9.5 (8.4-10.2) mg/dL Magnesium 1.6 (1.6-2.3) mg/dL Total Bilirubin 0.8 (0.2-1.3) mg/dL AST 31 (14-36) U/L ALT 23 (6-35) U/L Alkaline Phosphatase 87 (38-126) U/L Total Protein 7.6 (6.3-8.2) g/dL Albumin 4.3 (3.5-5.1) g/dL TSH 1.110 (0.465-4.680) uIU/mL Urine Color Yellow (Yellow) Urine Appearance Cloudy H (Clear) Urine pH 5.0 (5.0-9.0) Ur Specific [place] 1.025 (1.001-1.035) Urine Protein Negative (Negative) mg/dL Urine Glucose (UA) 3+ H (Negative) mg/dL Urine Ketones Negative (Negative) mg/dL Ur Blood (Man) Non-hemolyzed trace H (Negative) Urine Nitrate Positive H (Negative) Urine Bilirubin Negative (Negative) Urine Urobilinogen 0.2 (<2.0) mg/dL Leukocyte Esterase Rfl 1+ H (Negative) TEJA/UL Urine RBC 0-2 (0-2) /hpf Urine WBC 51-100 H (0-3) /hpf Ur Squamous Epith Cells Occasional (Few) /hpf Urine Bacteria 4+ H /hpf Urine Casts 0-2 Salicylates < 1.0 L (2-20) mg/dL Urine Opiates Screen Negative (Negative) Urine Methadone Screen Negative (Negative) Acetaminophen < 10 L (10-30) ug/mL Ur Barbiturates Screen Negative (Negative) Ur Phencyclidine Scrn Negative (Negative) Ur Amphetamine Screen Negative (Negative) U Benzodiazepines Scrn Negative (Negative) Urine Cocaine Screen Negative (Negative) U Cannabinoids Screen Negative (Negative) Ethyl Alcohol < 10 (<10) mg/dL Influenza A (RT-PCR) Negative (Negative) Influenza B (RT-PCR) Negative (Negative) RSV (RT-PCR) Negative (Negative) SARS-CoV-2 RNA (RT-PCR) Negative (Negative) Discharge Plan Discharge Clinical Impression: Intentional overdose, Depression with suicidal ideation Patient Disposition: Psychiatric Hosp Condition: Stable Patient Language: Swiss Prescriptions: No Action fluconazole [Diflucan] 200 mg tablet 200 mg PO DAILY Qty: 2 6RF gabapentin 600 mg tablet 1,200 mg PO HS aspirin 81 mg Tablet 81 mg PO DAILY paroxetine HCl [Paxil] 30 mg Tablet 30 mg PO QAM Synjardy XR 5-1,000 mg Tablet, Ir - Er, Biphasic 24hr 1 tablet PO QAM rosuvastatin 5 mg Tablet 5 mg PO HS pantoprazole 40 mg Tablet,Delayed Release (Dr/Ec) 40 mg PO DAILY loratadine [Claritin] 10 mg Tablet 10 mg PO DAILY multivit with min-folic acid 0.4 mg Tablet 1 tablet PO DAILY cephalexin 500 mg capsule 500 mg PO Q12H Qty: 14 0RF Follow-up/Referrals: PHYSICIAN NOT ON STAFF,NONSTAFF [Primary Care Provider]
[2025-03-29] MEDS: ACETAMINOPHEN 325 MG TABLET 650 MG PO (16:17)
[2025-03-29 16:50] LABS: Influenza A QL RT-PCR Negative (Negative); Influenza B QL RT-PCR Negative (Negative); RSV RNA, RT-PCR Negative (Negative); SARS-CoV-2 RNA PCR Negative (Negative)
--- NOTE | 2025-03-29 16:53 | ECG_ITS ---
Test Date: 2025-03-29 17:51:53 Measurements Intervals [place] Rate: 68 P: 19 IN: 156 QRS: -37 QRSD: 89 T: 3 QT: 386 QTc: 413 Interpretive Statements SINUS RHYTHM LEFT AXIS DEVIATION PATTERN CONSISTENT WITH PULMONARY DISEASE BORDERLINE T WAVE ABNORMALITY- ANT/INF LEADS BASELINE ARTIFACT- I, II, AVR, V4-V5 BORDERLINE ECG Compared to ECG 03/29/2025 12:37:41 NO SIGNIFICANT CHANGE Electronically Signed On 03-29-2025 19:40:16 STEMMER MACHINE by Boston Crowell D.O.
== END 2025-03-29 20:17 ==
PROVIDERS: Emergency Provider Emergency Medicine
DX: T43.222A Poisoning by selective serotonin reuptake inhibitors, intentional self-harm, initial encounter (principal); F32.A Depression, unspecified; R45.851 Suicidal ideations; R82.90 Unspecified abnormal findings in urine; E11.9 Type 2 diabetes mellitus without complications; E78.5 Hyperlipidemia, unspecified; K21.9 Gastro-esophageal reflux disease without esophagitis; G47.33 Obstructive sleep apnea (adult) (pediatric); Z96.643 Presence of artificial hip joint, bilateral; Z87.891 Personal history of nicotine dependence; Z20.822 Contact with and (suspected) exposure to COVID-19
CPT/HCPCS: 36415; 80053; 80143; 80179; 80307; 81001; 82077; 83605; 83735; 84443; 85025; 85610; 85730; 87077; 87086; 87186; 87637; 93005; 99285; A9270